=== PATIENT | female | born 1945 | race Caucasian/White ===

== ENCOUNTER 2016-05-31 07:44 | Day surgery (SDC) | payer MEDICARE ==
[~2016-05-31] VITALS: Ht 162.6 cm; Wt 86.0 kg
[2016-05-31] VITALS (14 sets, daily range): BP systolic 95–125; BP diastolic 6–76; PULSE 46–61; RESP 9–20; O2SAT 87–98
[~2016-05-31 07:44] MED LIST: ALBU18HF INH; CHOL500011 PO; CLOP75TA3 PO; COMPLEX PO; CeFAZolin 2 Gm/50 mL D5W IV Premix IV ONE; DIAZ10TA PO; DOCU250C2 PO; HYDR-3740 PO; LABE100T4 PO; LEVO100T6 PO; LISI2.5T PO; Lactated Ringer's 1,000 ML IV SCH; MULT-1018 PO; OMEG-38 PO; PANT40TA2 PO; POLY17PO6 PO; PSYL660P17 PO; SENN-133 PO; SPIR25TA3 PO; UBID1CAP52 PO; [UNRECOGNIZED DRUG - OTHER] PO
[2016-05-31] MEDS ORDERED: Ondansetron 2 mg/mL 2 mL Inj ONE (07:45)
[2016-05-31] MEDS ORDERED: Atropine 0.4 mg/mL 5 mL Inj ONE (07:45)
[2016-05-31] MEDS ORDERED: EPHEDrine/NS 5 mg/mL 5 mL Syringe ONE (07:45)
[2016-05-31] MEDS ORDERED: Dexamethasone 4 mg/mL Inj ONE (07:45)
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
[2016-05-31] MEDS ORDERED: Ketamine 10 mg/mL 20 mL Inj ONE (09:00)
[2016-05-31] MEDS ORDERED: Remifentanil 1 mg/3 mL Inj ONE (09:00)
[2016-05-31] MEDS ORDERED: Lactated Ringer's 1,000 ML IV ONE (09:01)
[2016-05-31] MEDS ORDERED: Bupivacaine-MPF 0.5% 30 mL Inj INFILTRATE ONE (10:28)
[2016-05-31] MEDS ORDERED: Ondansetron 2 mg/mL 2 mL Inj IVPUSH PRN (11:15)
[2016-05-31] MEDS ORDERED: Lactated Ringer's 500 ML IV PRN (11:15)
[2016-05-31] MEDS ORDERED: Lactated Ringer's 1,000 ML IV SCH (11:15)
[2016-05-31] MEDS ORDERED: Dexamethasone 4 mg/mL Inj IVPUSH PRN (11:15)
[2016-05-31] MEDS ORDERED: EPHEDrine Sulfate 50 mg/mL Inj IVPUSH PRN (11:15)
[2016-05-31] MEDS ORDERED: MetoCLOpramide 5 mg/mL 2 mL Inj IVPUSH PRN (11:15)
[2016-05-31] MEDS ORDERED: Phenylephrine 10,000 mCg/mL Inj IVPUSH PRN (11:15)
[2016-05-31] MEDS ORDERED: HYDROcodone-APAP 10-325 mg PO ONE (11:35)
--- NOTE | 2016-05-31 11:46 | PCM.ORTHOB ---
Immediate Operative Note Date of Service: May 31, 2016 Pre Operative Diagnosis Right distal radius fracture Post Operative Diagnosis Same Procedure Right distal radius fracture open reduction and internal fixation Surgeon Surgeon: Te Escalera MD Assistants: Poncho Gil PA-C Findings Right distal radius, displaced, comminuted, over 3 part intra-articular distal radius fracture satisfactorily reduced and stabilized considering pre-existing distal radial fracture deformity from previous fracture with a Synthes 3-hole proximal and 6 hole distal small narrow 2.4 mm variable angle locking delta plate with 62.4 mm distal locking screws and 3 proximal 2.7 mm bicortical screws. Intraoperative fluoroscopic viewing with mini C-arm confirmed satisfactory reduction without intra-articular or dorsal cortical violation from our placed hardware. Grafts, Implants: Implants-See Implant Record Complications There were no periprocedural complications identified. Condition Stable Anesthetic Administered: GA Drains: None Catheters: None Output, Estimated Blood Loss: 5 Blood Admin during surgery: No Surgical Cast or Splint: None, Short Arm Splint Additional Information Tourniquet time 92 minutes Surgical Specimen Removed: No Surgical Specimen sent to Path: No Post Operative Plan Patient will discharge home when surgical date for protocol is met. The patient will avoid strenuous and weightbearing activities to her right upper extremity for the next 6 weeks. Patient will return to the orthopedic office on or after postop day 12 for surgical splint removal, suture removal, repeat x- rays of her right wrist and placement in a removable volar wrist cock-up splint. Wrist and hand range of motion exercises will be initiated at that point. Te Escalera MD May 31, 2016 11:46
[2016-05-31] MEDS: fentaNYL-PF 50 mCg/mL 2 mL Inj IVPUSH PRN ×3 (11:49→13:03)
[2016-05-31] MEDS: HYDROmorphone 1 mg/mL Inj IVPUSH PRN ×3 (11:55→12:30)
--- NOTE | 2016-05-31 11:55 | PCM.ORTHOP ---
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 Unfortunately, the patient tripped and fell outside her home 05/23/2016 and refractured her right distal radius. Preoperative x-rays and physical exam reveal a displaced, intra- articular, unstable right distal radius fracture with mild pre-existing fracture malunion deformity. The patient presents today for right distal radius open reduction internal fixation of her displaced right distal radius intra-articular fracture. The skilled assistance of a physician's occupational therapy assistant, Poncho Gil PA-C, was necessary for the successful completion of this case. The PA was essential for the proper positioning, manipulation of instruments, proper exposure, manipulation of tissues and wound closure. Findings Right distal radius, displaced, comminuted, over 3 part intra-articular distal radius fracture satisfactorily reduced and stabilized considering pre-existing distal radial fracture deformity from previous fracture with a Synthes 3-hole proximal and 6 hole distal small narrow 2.4 mm variable angle locking delta plate with 62.4 mm distal locking screws and 3 proximal 2.7 mm bicortical screws. Intraoperative fluoroscopic viewing with mini C-arm confirmed satisfactory reduction without intra-articular or dorsal cortical violation from our placed hardware. Details of Procedure Patient was brought to the OR and given a general anesthetic. She is placed in supine position with the right upper extremity abducted onto a hand table. Tourniquet was placed high about the right arm. Right upper extremity sheet to trauma scrub and then was prepped and draped in usual sterile fashion. Limb was elevated exsanguinated and tourniquet inflated to 200 mmHg. A longitudinal incision was placed over the volar radial forearm overlying the flexor carpi radialis tendon and curved gently proximal to the volar radial wrist flexor crease. We deepened our incision through subcutaneous tissues and divided the fascia over the FCR tendon. The radial nerve and artery were gently retracted radially and the FCR, flexor tendons and median nerve were retracted gently ulnar. We elevated the flexor pollicis longus and pronator quadratus in a subperiosteal fashion off the distal radial border of the radius and at the radial styloid and extended our subperiosteal dissection transversely at the watershed line to expose the volar surface of the distal radius from diaphyseal metaphyseal flare to just proximal to the radiocarpal joint. We evacuated fracture hematoma, soft tissue subperiosteally and performed an open reduction of the over 3 part intra-articular distal radius fracture. Mini C-arm fluoroscopic image intensification confirmed satisfactory reduction and alignment. We then applied to the volar surface of the distal radius, transversing the comminuted metaphyseal fracture site, a Synthes 2.4 mm variable angle 2 column locking volar narrow distal radial plate. The plate was secured distally with 6 x 2.4 mm locking screws and proximally with 3 x 2.7 mm bicortical screws. Intraoperative fluoroscopic views confirmed satisfactory reduction and fixation without intra-articular violation or dorsal cortical penetration from our placed hardware. The wound was thoroughly irrigated and closed. The pronator quadratus and flexor pollicis longus was closed over the volar plate with a running 3-0 Vicryl suture. The subcutaneous tissues were closed with interrupted 3-0 Vicryl. A 3-0 Prolene subcuticular stitch was used to close the skin. 20 mL of 0.5% Marcaine was instilled into the wound at the end of the case. The wound was dressed with Xeroform and fluff gauze dressings. The patient was placed into a well-padded volar short arm splint. Tourniquet was deflated and the patient was taken back to PACU in stable and satisfactory condition. There were no complications. The patient tolerated the procedure well. Grafts, Implants: Implants-See Implant Record Complications There were no periprocedural complications identified. Condition Stable Anesthetic Administered: GA Drains: None Catheters: None Output, Estimated Blood Loss: 5 Blood Admin during surgery: No Surgical Cast or Splint: None, Short Arm Splint Addtional Information Tourniquet time 92 minutes Surgical Specimen Removed: No Specimen sent to Pathology: No Post Operative Plan Patient will discharge home when surgical date for protocol is met. The patient will avoid strenuous and weightbearing activities to her right upper extremity for the next 6 weeks. Patient will return to the orthopedic office on or after postop day 12 for surgical splint removal, suture removal, repeat x- rays of her right wrist and placement in a removable volar wrist cock-up splint. Wrist and hand range of motion exercises will be initiated at that point. copies to: Rubio Rod MD; Te Escalera MD, Michael G.E MD May 31, 2016 11:55
--- NOTE | 2016-05-31 12:13 | DRSVH ---
PROCEDURE: X-RAY RIGHT WRIST, TWO VIEWS ([id number]) INDICATIONS: post operation TECHNIQUE: 2 views of the wrist were acquired. COMPARISON: [facility], CR, XR WRIST 3VW RT, 05/23/2016, 13:32. FINDINGS: Bones: Interval ORIF of distal radial fracture. There is grossly good anatomic alignment. Hardware is intact. Scaphoid view: Not obtained. Soft tissues: No suspicious soft tissue calcifications. IMPRESSION: Interval ORIF of distal radial fracture as above. Dictated by: Nori Macias M.D. on 05/31/2016 at 12:12 Approved by: Nori Macias M.D. on 05/31/2016 at 12:12
--- NOTE | 2016-05-31 12:52 | PCM.ANEP1 ---
Post Anesthesia Phase 1 PACU Phase 1 Assessment Date of Service: May 31, 2016 Vital Signs Vital Signs Date Time Temp Pulse Resp B/P Pulse Ox O2 Delivery O2 Flow Rate FiO2 05/31/16 12:40 56 12 108/68 95 Nasal Cannula 4 05/31/16 12:30 56 15 123/74 94 Nasal Cannula 4 05/31/16 12:20 35.8 58 12 114/66 95 Nasal Cannula 4 05/31/16 12:14 56 12 107/67 97 Simple Mask 10 05/31/16 12:01 46 13 113/64 92 Nasal Cannula 3 05/31/16 11:50 57 18 112/64 98 Simple Mask 10 05/31/16 11:45 50 12 108/58 98 Simple Mask 10 05/31/16 11:40 53 9 98/56 98 Simple Mask 10 05/31/16 11:35 36.1 58 11 95/51 98 Simple Mask 10 05/31/16 08:36 36.5 59 20 125/75 95 Room Air Anesthetic Administered: GA Level of Alertness: Awake, talking BERGER's with Equal Strength: Yes Pain: No Nausea or Vomiting: No Oxygen Delivery: Simple Mask Lungs: Clear to Auscultation Dermatome Level: Full Sensation Carlos Hauser MD May 31, 2016 12:52
--- NOTE | 2016-05-31 12:53 | PCM.ANEP2 ---
Post Anesthesia Evaluation ASA/CMS Post Anesthesia VS in Patient's Normal Range?: Yes Resp Stable; Airway Patent?: Yes CV Function & Hydration Stable: Yes Mental Status Recovered?: Yes Pain control Satisfactory?: Yes N/V Control Satisfactory?: Yes Carlos Hauser MD May 31, 2016 12:53
== END 2016-05-31 23:59 | disposition home or self-care (01) ==
LOC: SAS 07:44
PROVIDERS: ATTEND Orthopaedic Surgery
DX: S52.571A Other intraarticular fracture of lower end of right radius, initial encounter for closed fracture (principal); I69.952 Hemiplegia and hemiparesis following unspecified cerebrovascular disease affecting left dominant side; I25.10 Atherosclerotic heart disease of native coronary artery without angina pectoris; W18.30XA Fall on same level, unspecified, initial encounter; Y92.019 Unspecified place in single-family (private) house as the place of occurrence of the external cause; Y99.9 Unspecified external cause status; Y93.9 Activity, unspecified; F41.9 Anxiety disorder, unspecified; F32.9 Major depressive disorder, single episode, unspecified; K21.9 Gastro-esophageal reflux disease without esophagitis; I10 Essential (primary) hypertension; Z85.850 Personal history of malignant neoplasm of thyroid; Z79.02 Long term (current) use of antithrombotics/antiplatelets; Z87.440 Personal history of urinary (tract) infections; Z87.81 Personal history of (healed) traumatic fracture; Z91.81 History of falling
CPT/HCPCS: 25609; 73100; C1713; J0461; J0690; J1100; J1170; J2405; J7120

== ENCOUNTER 2016-09-06 16:13 | Inpatient (IN) | payer MEDICARE ==
[~2016-09-06] VITALS: Ht 162.6 cm; Wt 85.1 kg
[~2016-09-06 16:13] MED LIST changes: -CeFAZolin 2 Gm/50 mL D5W IV Premix IV ONE; -Lactated Ringer's 1,000 ML IV SCH
[2016-09-06 16:37] VITALS: BP 161/83; PULSE 64; RESP 15; O2SAT 97
[2016-09-06 17:06] LABS: BASOPHILS % (AUTO) 0.5 % (0-3); EOSINOPHILS % (AUTO) 2.1 % (0-5); MONOCYTES % (AUTO) 5.3 % (4-12); Mean Corpuscular Hemoglobin 33.5 pg (27.0-35.0); Mean Corpuscular Volume 96.8 fL (81-100); NEUTROPHILS % (AUTO) 53.3 % (40-74); Platelet Count 240 bil/L (150-400)
--- NOTE | 2016-09-06 17:18 | ED.REPORT ---
HPI-Stroke / CVA Sep 06, 2016 ED Provider: Devyn Santiago MD 70 y/o female with a hx of multiple CVAs, CAD, HTN, self-reported 4.7cm ascending aortic aneurysm and thyroid cancer (s/p resection) reports to the ED complaining of blurred vision, onset approximately 15:15 today. She also complains of elevated blood pressure about 170 systolic and chest pressure. Her PCP recommended she come to the ED due to her elevated BP and CP. She also complains of weakness in her left lower extremity upon arriving at ED at 17:15. She denies dysphagia, dysarthria.. Nursing Notes Stated Complaint: HIGH BLOOD PRESSURE, BLURRED VISION,CHEST PRESSURE Chief Complaint: Chest Pain Nursing Notes Reviewed: Yes Allergies: Coded Allergies: Contrast Media (Verified Allergy, Severe, Anaphylaxis, 05/29/16) atenolol (Verified Allergy, Severe, Anaphylaxis, 05/29/16) "swelling, resp arrest" chlorpromazine (Verified Allergy, Severe, RESP ARREST, 05/29/16) clonidine (Verified Allergy, Severe, HIVES, 05/29/16) droperidol (Verified Allergy, Severe, SUICIDAL IDEATION, 05/29/16) ezetimibe (Verified Allergy, Severe, RASH, 05/29/16) iodine (Verified Allergy, Severe, respiratory failure, 05/29/16) monosodium glutamate (Verified Allergy, Severe, Anaphylaxis, 05/29/16) Resp arrest prochlorperazine (Verified Allergy, Severe, ACUTE DYSTONIC RXN/resp arrest , 05/29/16) shellfish derived (Verified Allergy, Severe, Anaphylaxis, 05/29/16) triamcinolone (Verified Allergy, Severe, 05/29/16) Facial swelling trifluoperazine (Verified Allergy, Severe, HALLUCINATIONS,RESP ARREST, ) aspirin (Verified Allergy, Intermediate, MIGRAINE HEADACHE, 05/29/16) atorvastatin (Verified Allergy, Intermediate, Hives, 05/29/16) simvastatin (Verified Allergy, Intermediate, Hives, 05/29/16) dipyridamole (Verified Allergy, Mild, headache, nausea, 05/29/16) Adhesives (Verified Allergy, Unknown, 05/29/16) pentazocine (Verified Allergy, Unknown, Hallucinations, 05/29/16) fluticasone (Verified Adverse Reaction, Severe, Hives, 05/29/16) Nose swelling methadone (Verified Adverse Reaction, Severe, HIVES, 05/29/16) morphine (Verified Adverse Reaction, Severe, Rash,Itching,, 05/29/16) oxycodone (Verified Adverse Reaction, Severe, HIVES,SWELLING, 05/29/16) pravastatin (Verified Adverse Reaction, Severe, Hives, 05/29/16) Muscle pain codeine (Verified Adverse Reaction, Intermediate, DIZZY, UNSTEADY, 05/29/16 ) "depends on product" Uncoded Allergies: PROPIONATE (Allergy, Severe, FACIAL SWELLING, 05/29/16) Scheduled ([super b-50 complex]) 1 TABLET PO DAILY (Reported) Cholecalciferol (Vitamin D3) (Vitamin D3) 5,000 Unit Tablet 5,000 UNIT PO DAILY (Reported) Clopidogrel Bisulfate (Plavix) 75 Mg Tablet 75 MG PO DAILY (Reported) Docusate Sodium (Docusate Sodium) 250 Mg Capsule 250 MG PO BID (Reported) Labetalol (Labetalol) 100 Mg Tablet 100 MG PO QID (Reported) Take 1/2 to 1 tablet four times daily. Levothyroxine (Levothyroxine) 100 Mcg Tablet 100 MCG PO DAILY (Reported) Lisinopril (Lisinopril) 2.5 Mg Tablet 1.25 MG PO BID (Reported) Multivitamin (Multi Vitamin Daily) 1 Each Tablet 1 EACH PO HS (Reported) Cyrus-3/Dha/Epa/Fish Oil (Fish Oil 1,000 mg Softgel) 1 Each Capsule 1 EACH PO TID (Reported) Pantoprazole DR (Protonix) 40 Mg Tablet.dr 40 MG PO BID (Reported) Polyethylene Glycol 3350 (Miralax) 17 Gm Powd.pack 17 GM PO DAILY (Reported) Psyllium Husk (Metamucil) 3.4 Gram/5.4 Gram Powder 0 PO HS (Reported) Spironolactone (Spironolactone) 25 Mg Tablet 1-2 TABLET PO DAILY (Reported) Ubidecarenone/Vit E Acetate (Co Q-10 100 mg Softgel) 1 Each Capsule 2 EACH PO HS (Reported) Scheduled PRN Albuterol Sulfate (Ventolin HFA Inhaler) 200 Puff/18 Gm Inhaler 2 PUFF INH Q4 PRN PRN For Wheezing (Reported) Diazepam (Valium) 10 Mg Tablet 10 MG PO Q4-6H PRN PRN For Anxiety Hydrocodone-Acetaminophen 10-325 mg (Hydrocodone-Acetaminophen 10-325 mg) 1 Each Tablet 1-2 TABLET PO Q4H PRN PRN For Pain Sennosides (Senna) 8.6 Mg Tablet 8.6 MG PO DAILY PRN PRN PRN For Constipation ( Reported) General Time Seen by Provider: 17:15 Chief Complaint Other (Blurred vision) Eye right, Eye left Hx Obtained From: Patient Arrived By: Walk-in Time last known well 15:15 Sudden in Onset?: Yes Symptom Duration: Since onset Progression Since Onset: Constant Location: : Chest Quality: Pressure Severity: Current: Mild Severity: Maximum: Mild Recent Healthcare: Recent doctor visit, Previous diagnosis Similar Sx Previous: Yes Risk Factors )( TPA Administration/Criteria Stroke Thrombolytic Therapy : TPA Considered: Yes Neurologist Contacted: Yes TPA Administered Intravenously: No, not indicated NIH Stroke Scale Level of Consciousness: Alert and responsive (0) Ask Month & Age: Both questions right (0) Open/Close Eyes/Hand Fan Balancer: Performs both tasks (0) Horizontal EO Movements: None (0) Visual Sumner: No visual loss (0) Facial Palsy: Normal symmetry (0) Right Arm Motor Drift (10s): No drift 10 sec (0) Left Arm Motor Drift (10s): No drift 10 sec (0) Right Leg Motor Drift (5s): No drift 5 sec (0) Left Leg Motor Drift (5s): Some effort v gravity (2) Limb Ataxia FNF/Heel-Vo: Ataxia in 1 limb (1) (LUE) Sensation (Arms/Legs/Face): No sensory loss (0) Language Aphasia: No aphasia, normal (0) Dysarthria: No dysarthria, normal (0) Extinction/Inattention: No exctinct/inattent (0) NIHSS Score: 3 Time NIHSS Performed: 17:24 Date NIHSS Performed: Sep 06, 2016 Past Medical History Past Medical History Notes: Admit for TIA 09/11/15, declined Plavix at that time Past Medical History 1. Coronary artery disease. 2. Gastroesophageal reflux disease. 3. Hypertension. 4. History of multiple strokes and TIA. 5. Thoracic ascending aortic aneurysm reportedly 4.7 cm 6. Valvular heart disease. 7. History of thyroid cancer status post total thyroidectomy. Past Surgical History Thoracic spinal fusions Right wrist repair Thyroidectomy Family History noncontributory Smoking History Never Smoker Social History Alcohol Use: Denies alcohol use Drug Use: Denies drug use Other Social History: Good social support, , Local resident Ambulatory Status Independent Review of Systems Eyes: Reports: Blurred bilateral Cardiovascular: Reports: Chest pain GI: Denies: Dysphagia Neurologic: Reports: Focal weakness (LLE), Vision change, Denies: Unable to speak Complete sys rev & neg: except as marked. Physical Exam Initial Vital Signs Vital Signs (First) Date Time Temp Pulse Resp B/P Pulse Ox O2 Delivery O2 Flow Rate FiO2 09/06/16 16:37 36.5 64 15 161/83 97 Room Air Initial VS: Reviewed ENT: Mucous membranes moist, Conjunctiva normal, No scleral icterus Abdomen / GI: Soft, Non-tender, No guarding, No rebound, No distention Skin: Warm, Dry, No cyanosis General/Constitutional: Awake, Alert, Cooperative Odd affect Head / Eyes: Atraumatic, Normocephalic Subjective blurry vision. Neck: Atraumatic, Supple, Full range of motion Respiratory / Chest: Atraumatic, Breath sounds NL, Breath sounds = bilat, No respiratory distress, No rales, No rhonchi, No wheezing, No retractions Cardiovascular: Heart rate NL, Regular rhythm, Heart sounds NL, No gallop, No murmurs Neurologic: Oriented X3, Speech NL, CN II - XII intact Left lower extremity weakness. Left upper extremity dysmetria. Subjective decreased sensation of LLE to pinprick See NIH stroke scale. Upper Extremity / MS: Atraumatic, Full range of motion, Vascular intact Lower Extremity / Pelvis / MS: Atraumatic, Vascular intact Interpretation & Diagnostics Lab Results Interpretation Result Diagram: 09/06/16 1655 09/06/16 1655 Test 09/06/16 16:55 09/06/16 16:58 White Blood Count 6.1th/mm3 (3.8-10.1) Red Blood Count 4.42mil/mm3 (3.90-5.20) Hemoglobin 14.8g/dL (12.0-15.6) Hematocrit 42.8% (35.0-46.0) Mean Corpuscular Volume 96.8fL (81-100) Mean Corpuscular Hemoglobin 33.5pg (27.0-35.0) Mean Corpuscular Hemoglobin Concent 34.6% (32.0-37.0) Red Cell Distribution Width 11.9% (12.3-15.4) Platelet Count 240bil/L (150-400) Neutrophils (%) (Auto) 53.3% (40-74) Lymphocytes (%) (Auto) 38.6% (14-46) Monocytes (%) (Auto) 5.3% (4-12) Eosinophils (%) (Auto) 2.1% (0-5) Basophils (%) (Auto) 0.5% (0-3) Prothrombin Time 10.4sec (8.1-12.5) Prothromb Time International Ratio 0.97ratio Activated Partial Thromboplast Time 25.9sec (22.8-33.0) Sodium Level 142mEq/L (134-144) Potassium Level 3.8mEq/L (3.5-5.2) Chloride Level 103mEq/L (97-108) Carbon Dioxide Level 23mmol/L (18-29) Blood Urea Nitrogen 20mg/dL (8-27) Creatinine 0.69mg/dL (0.57-1.00) Estimat Glomerular Filtration Rate 120mL/min (>59) Glucose Level 93mg/dL (60-99) Calcium Level 10.5mg/dL (8.5-10.1) Magnesium Level 1.8mg/dL (1.6-2.6) Total Bilirubin 0.4mg/dL (0.0-1.2) Aspartate Amino Transf (AST/SGOT) 24U/L (0-50) Alanine Aminotransferase (ALT/SGPT) 11U/L (0-32) Alkaline Phosphatase 76U/L (25-165) Troponin T < 0.010ug/L (0.0-0.011) Total Protein 7.4g/dL (6.4-8.4) Albumin 4.6g/dL (3.4-5.0) Hold Zaidi Top Tube Received (Received) ECG Interpretation ECG Interpretation: Atrial Fibrillation. Rate 61. Left ventricular hypertrophy. Anterior Q waves. Poor quality. Time: 17:40 Interpreted by: ED physician X-Ray Chest Interpretation Chest Xray Interpretation: IMPRESSION: No acute cardiopulmonary disease. Dictated by: Vick Cantu M.D. on 09/06/2016 at 17:15 Approved by: Vick Cantu M.D. on 09/06/2016 at 17:15 View: Portable, 1 view Interpretation / Wet Read by: Interpret - Radiologist CT Head Interpretation IMPRESSION: No acute intracranial abnormalities. Nonacute right temporal lobe and left thalamic lobe ischemic insults as before. Findings were discussed with nurse Uriarte at 1730 hrs on September 06, 2016. This study fulfills neurological imaging criteria for inclusion or exclusion of acute stroke therapies based on available published neurological imaging guidelines. Dictated by: Vick Cantu M.D. on 09/06/2016 at 17:24 Approved by: Vick Cantu M.D. on 09/06/2016 at 17:29 Study: Head CT no contrast Interpretation / Wet Read by: Interpret - Radiologist Re-Eval/Medical Decision Med Decision/Clinical Course 70-year-old female history of hypertension, thoracic aneurysm, CVA's on plavix presenting with elevated blood pressures and chest pressure earlier today. She also complained of blurry vision 2 hours prior to arrival and when I evaluated her she reported that her left leg became weak when she arrived. She was ambulatory on the way in and reported she was unable to lift her left leg she was here. Code stroke was called immediately. NIH stroke scale 3 for left upper extremity dysmetria and left lower extremity weakness. She reported subjective blurry vision but was able to count fingers and read words. CT head no hemorrhage. Stroke neurologist was called immediately who reviewed the CT scan and thought there may be a developing left occipital infarct and recommended no TPA as a result. She recommended admission for MRI and mild lowering of blood pressure. Troponins negative. No acute changes on EKG. Will trend on admission. Admitted to hospitalist. Source of Hx: Old records Re-Evaluation/Progress : Time of Eval: 18:20 Re-Evaluation/Progress Note: Pt rechecked. Pt informed of need for admission. Pt understands and agrees with plan for admission. All questions addressed. Consultation #1: Consulted With: Neurology Call Returned at: 17:32 Note: Discussed case with [place] Stroke Neurologist Leticia Olivas. She recommends no TPA. She believes she sees an occipital lobe stroke on CT. Consultation #2: Referral / Consult Name: Jorge Caban MD Consulted With: Hospitalist Call Returned at: 18:08 Furniture Restorer: Will see patient, Agrees with eval, Agrees with plan, Accepts admit Counseled Regarding: Diagnosis, Lab results, Need for admission Patient Discharge & Departure Impression: Primary Impression: CVA (cerebral vascular accident) CVA mechanism: unspecified Qualified Code: I63.9 - Cerebral infarction, unspecified Additional Impressions: Left leg weakness Chest pain Disposition: ADMITTED TO HOSPITAL Discharge Condition All VS Reviewed: Yes Condition: Stable Referrals: Rubio Rod MD (PCP) Crit Care Except Billable Proc Time Spent: 75-104 minutes (90) Services Performed: Patient management by me, Time spent at bedside, Reviewing test results, Reviewing imaging, Discussing patient care, Documentation in record Critical Care Notes: See MDM Scribe Attestation Portions of this note were transcribed by Alexandria Hassan and Juan Martinez. I, , personally performed the history, physical exam and medical decision-making;I reviewed and confirmed the accuracy of the information in the transcribed note. Signed by Alxeandria Hassan and Juan Martinez, Scribe. 09/06/16 1815. copies to: Rubio Rod MD, Ben M MD Sep 06, 2016 17:18 Alexandria Hassan Sep 06, 2016 17:29 JUAN MARTINEZ Sep 06, 2016 18:23
--- NOTE | 2016-09-06 17:22 | DRSVH ---
PROCEDURE: X-RAY CHEST ONE VIEW, PORTABLE ([id number]) INDICATIONS: 70 year-old female with chest pain. TECHNIQUE: One view of the chest was acquired. COMPARISON: [facility], CR, XR CHEST 1VW (PORTABLE), 03/04/2015, 20:55. [facility], CR, CHEST 1VW (PORTABLE), 09/30/2014, 10:23. [facility], CR, CHEST 1VW (PORTABLE ), 04/22/2014, 14:40. FINDINGS: Surgical changes and devices: Patient is status postcholecystectomy and cervical spine fixation. Lungs and pleura: No pleural effusions or pneumothorax. Lungs are clear. Mediastinum: Mediastinal contours appear normal. Heart size is normal. Bones and chest wall: No suspicious bony lesions. Overlying soft tissues appear unremarkable. IMPRESSION: No acute cardiopulmonary disease. Dictated by: Vick Cantu M.D. on 09/06/2016 at 17:15 Approved by: Vick Cantu M.D. on 09/06/2016 at 17:15
[2016-09-06 17:29] LABS: INR 0.97 ratio
[2016-09-06 17:33] LABS: TROPONIN T < 0.010 ug/L (0.0-0.011)
--- NOTE | 2016-09-06 17:36 | DRSVH ---
PROCEDURE: CT BRAIN (TPA) ([id number]) INDICATIONS: 70 year-old female with left-sided weakness and blurred vision. TECHNIQUE: Noncontrast 4.5 mm thick angled axial sections acquired from the foramen magnum to the vertex, with c oronal reformats. COMPARISON: [facility], CT, CT BRAIN WO CON, 05/23/2016, 14:50. [facility], MR, MR BRAIN WO CON, 10/07/2015, 18:46. [facility], CT, CT BRAIN WO CON, 10/07/2015, 17:25 . [facility], CT, CT BRAIN WO CON, 09/11/2015, 1:57. FINDINGS: Image quality: Excellent. CSF spaces: Basal cisterns are patent. No extra-axial fluid collections. Ventricles are normal in size and shape. Brain: No midline shift. No intracranial masses or hemorrhage. Nonacute ischemic insult in the rig ht temporal lobe is unchanged since 2016, as well as the left thalamic lobe. Tejeda-white matter interf dayanara is otherwise normal. Skull and face: Calvarium and visualized facial bones are intact, without suspicious lesions. Sinuses: Visualized sinuses and mastoids are clear. IMPRESSION: No acute intracranial abnormalities. Nonacute right temporal lobe and left thalamic lobe ischemic insults as before. Findings were discussed with nurse Uriarte at 1730 hrs on September 06, 2016. This study fulfills neurological imaging criteria for inclusion or exclusion of acute stroke therapie s based on available published neurological imaging guidelines. Dictated by: Vick Cantu M.D. on 09/06/2016 at 17:24 Approved by: Vick Cantu M.D. on 09/06/2016 at 17:29
[2016-09-06] MEDS ORDERED: Labetalol 5 mg/mL 4 mL Inj ONE (17:39)
[2016-09-06 17:42] LABS: Magnesium 1.8 mg/dL (1.6-2.6)
[2016-09-06] MEDS ORDERED: Labetalol 5 mg/mL 4 mL Inj IVPUSH ONE (17:45)
[2016-09-06] MEDS ORDERED: Alum-Mag Hydrox-Simeth 30 mL Suspension PO PRN ×2 (18:15→18:25)
[2016-09-06] MEDS ORDERED: Ondansetron 2 mg/mL 2 mL Inj IVPUSH PRN ×2 (18:15→18:25)
[2016-09-06] MEDS: Sodium Chloride LOK Flush 10 mL Syringe IVFLUSH SCH (18:15)
[2016-09-06] MEDS ORDERED: FISH1CAP15 PO (18:30)
[2016-09-06] MEDS ORDERED: LEVO112T4 PO (18:30)
[2016-09-06] MEDS ORDERED: LISI-571 PO (18:30)
[2016-09-06 18:37] VITALS: BP 182/78; PULSE 55; RESP 18; O2SAT 96
[2016-09-06] MEDS ORDERED: Polyethylene Glycol (PEG) 17 Gm Powder PO PRN (18:40)
--- NOTE | 2016-09-06 18:40 | NUR ---
MPC To arrive to unit via gurney, unable to assist with sliding from gurney to bed. Patient reporting neck and back pain, "I am hoping for Dilaudid, I haven't had my pain meds all day. Hospitalist contacted for home pain meds. Patient tucked in, report to oncoming nurse.
--- NOTE | 2016-09-06 19:11 | NUR ---
spiritual care: stroke response brief visit as pt rec care in ER. Pt known to insole buffer, greeted me and requested follow up in unit
[2016-09-06 19:36] VITALS: BP 182/103; PULSE 62; RESP 18; O2SAT 98
[2016-09-06] MEDS ORDERED: Albuterol 2.5 mg/3 mL Inhalation Solution NEB PRN (20:00)
--- NOTE | 2016-09-06 20:54 | NUR ---
Swallow Pt's lips/mouth is asymetrical due to prior stroke which is her baseline. MD aware that pt does not pass the RN swallow screen. MD requests pt to have a heart healthy diet tonight. Meds to be crushed in applesauce. Care ongoing
[2016-09-06] MEDS ORDERED: VIT E ACETATE PO SCH (21:00)
[2016-09-06] MEDS: Omega-3 Fatty Acids 1,000 mg Capsule PO SCH (21:00)
[2016-09-06] MEDS ORDERED: UBIDECARENONE PO SCH (21:00)
[2016-09-06] MEDS: HYDROcodone-APAP 10-325 mg PO PRN (21:42)
[2016-09-06] MEDS: Vitamin B Complex/Vit C Tablet PO SCH (21:43)
--- NOTE | 2016-09-06 22:10 | PCM.HPMED ---
Subjective Date of Service Sep 06, 2016 Primary Provider: Admitting Physician: Jorge Caban MD Primary Care Physician: Rubio Rod MD Attending Physician: Jorge Caban MD Admit Status: From the Emergency Department, Full Admit, Admit to Green Team Chief Complaint: High blood pressure, chest pain and left-sided weakness. History of Present Illness: Patient is a 70-year-old obese white female with history of multiple CVAs, TIAs , coronary artery disease and hypertension with a history of a 4.7 cm ascending thoracic aortic aneurysm who had a slightly elevated blood pressure this morning and she called Dr. Sheets's(sp?) office to his nurse Javy who recommended that she call Dr. Rod office as Dr. Sheets's(sp?) Was out of town. The patient called Dr. Rod's office and told the triage nurse that her blood pressure was 179/109 and that she did use the maximum doses of labetalol and lisinopril that she was allowed to use. The triage nurse told her to go to the emergency room. On coming to the emergency room patient dated that she had blurry vision and it felt like an elephant was sitting on her chest and she was cold and clammy and then she developed left-sided weakness of her left upper extremity and left lower extremity. Patient was evaluated by Dr. Devyn Santiago who also noted that she had left upper extremity weakness and even greater left lower extremity weakness. A code stroke was called immediately. Her NIH stroke score was 3 for left upper extremity dysmetria and left lower extremity weakness. She reported subjective blurry vision but was able to count fingers and read words. A CT scan of the head showed no hemorrhage. Dr. Olivas from [facility] a stroke neurologist was called immediately who reviewed the CT scan and thought there may be a developing left occipital infarct and recommended that the patient not receive TPA. She recommended admission for MRI and mild lowering of blood pressure. The patient' s troponins were negative. No acute changes on EKG and patient was admitted to the hospitalist service. Review of Systems: General: Patient has no general complaints at this time. She is beginning to feel better. HEENT: Patient has a slight headache, patient has blurry vision at the time of admission to the emergency room. Patient has no problems with her nose or throat. 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 However, she states that she has a left sided facial droop, which she states is new. Patient has no known dental problems. Patient has no pharyngitis or history of thrush. Neck: Patient has some chronic pain in her neck and she has had fusion of C3 through C7. No significant degenerative disc disease in her neck thoracic spine and lumbar spine. Patient has no lymphadenopathy. Patient has no other problems with their neck. Pulmonary: Patient has no shortness of breath, no cough, no expectoration of sputum. Patient has no pleurisy. Patient has no chest pain. Patient has no history of asthma or COPD. Cardiovascular: Patient has no chest pain. Patient has a history of a heart murmur. Patient has no palpitations. Patient has no history of myocardial infarction. Patient has a history of coronary artery disease. Gastrointestinal: Patient has no history of hepatitis A, B or C. Patient has no history of actual peptic ulcer disease. However, she states that she developed "pockets" while on aspirin that were concerning so her primary care doctor took her off aspirin. Patient has no history of gastroesophageal reflux disease. Patient has no history of nausea, vomiting, or diarrhea. Patient has no history of hematemesis, hematochezia, or melena. Patient has no history of colitis. Renal: Patient has no history of kidney disease. No history of kidney stones. Genitourinary: Patient has no history of dysuria, frequency, or incontinence. Patient has no previous history of genitourinary problems. Musculoskeletal: Patient has no history of muscular skeletal problems. Neurologic: Patient has a history of multiple strokes, and TIAs. She thinks she may have had a seizure in front of her strokes. However, she is not sure. Psychiatric: Patient has anxiety however denies any other psychiatric illnesses. The remainder of the entire review of systems was reviewed with patient and is as mentioned above otherwise negative. Allergies Coded Allergies: Contrast Media (Verified Allergy, Severe, Anaphylaxis, 09/06/16) atenolol (Verified Allergy, Severe, Anaphylaxis, 09/06/16) "swelling, resp arrest" chlorpromazine (Verified Allergy, Severe, RESP ARREST, 09/06/16) clonidine (Verified Allergy, Severe, HIVES, 09/06/16) droperidol (Verified Allergy, Severe, SUICIDAL IDEATION, 09/06/16) ezetimibe (Verified Allergy, Severe, RASH, 09/06/16) iodine (Verified Allergy, Severe, respiratory failure, 09/06/16) monosodium glutamate (Verified Allergy, Severe, Anaphylaxis, 09/06/16) Resp arrest prochlorperazine (Verified Allergy, Severe, ACUTE DYSTONIC RXN/resp arrest , 09/06/16) shellfish derived (Verified Allergy, Severe, Anaphylaxis, 09/06/16) triamcinolone (Verified Allergy, Severe, 09/06/16) Facial swelling trifluoperazine (Verified Allergy, Severe, HALLUCINATIONS,RESP ARREST, ) aspirin (Verified Allergy, Intermediate, MIGRAINE HEADACHE, 09/06/16) atorvastatin (Verified Allergy, Intermediate, Hives, 09/06/16) simvastatin (Verified Allergy, Intermediate, Hives, 09/06/16) dipyridamole (Verified Allergy, Mild, headache, nausea, 09/06/16) Adhesives (Verified Allergy, Unknown, 09/06/16) pentazocine (Verified Allergy, Unknown, Hallucinations, 09/06/16) fluticasone (Verified Adverse Reaction, Severe, Hives, 09/06/16) Nose swelling methadone (Verified Adverse Reaction, Severe, HIVES, 09/06/16) morphine (Verified Adverse Reaction, Severe, Rash,Itching,, 09/06/16) oxycodone (Verified Adverse Reaction, Severe, HIVES,SWELLING, 09/06/16) pravastatin (Verified Adverse Reaction, Severe, Hives, 09/06/16) Muscle pain codeine (Verified Adverse Reaction, Intermediate, DIZZY, UNSTEADY, 09/06/16 ) "depends on product" Uncoded Allergies: PROPIONATE (Allergy, Severe, FACIAL SWELLING, 05/29/16) Home Medications Scheduled ([super b-50 complex]) 1 TABLET PO DAILY (Reported) Cholecalciferol (Vitamin D3) (Vitamin D3) 5,000 Unit Tablet 5,000 UNIT PO DAILY (Reported) Clopidogrel Bisulfate (Plavix) 75 Mg Tablet 75 MG PO DAILY (Reported) Docusate Sodium (Docusate Sodium) 250 Mg Capsule 250 MG PO BID (Reported) Labetalol (Labetalol) 100 Mg Tablet 100 MG PO QID (Reported) Take 1/2 to 1 tablet four times daily. Levothyroxine (Levothyroxine) 100 Mcg Tablet 100 MCG PO DAILY (Reported) Lisinopril (Lisinopril) 2.5 Mg Tablet 1.25 MG PO BID (Reported) Multivitamin (Multi Vitamin Daily) 1 Each Tablet 1 EACH PO HS (Reported) [place]-3/Dha/Epa/Fish Oil (Fish Oil 1,000 mg Softgel) 1 Each Capsule 1 EACH PO TID (Reported) Pantoprazole DR (Protonix) 40 Mg Tablet.dr 40 MG PO BID (Reported) Polyethylene Glycol 3350 (Miralax) 17 Gm Powd.pack 17 GM PO DAILY (Reported) Psyllium Husk (Metamucil) 3.4 Gram/5.4 Gram Powder 0 PO HS (Reported) Spironolactone (Spironolactone) 25 Mg Tablet 1-2 TABLET PO DAILY (Reported) Ubidecarenone/Vit E Acetate (Co Q-10 100 mg Softgel) 1 Each Capsule 2 EACH PO HS (Reported) Scheduled PRN Albuterol Sulfate (Ventolin HFA Inhaler) 200 Puff/18 Gm Inhaler 2 PUFF INH Q4 PRN PRN For Wheezing (Reported) Diazepam (Valium) 10 Mg Tablet 10 MG PO Q4-6H PRN PRN For Anxiety Hydrocodone-Acetaminophen 10-325 mg (Hydrocodone-Acetaminophen 10-325 mg) 1 Each Tablet 1-2 TABLET PO Q4H PRN PRN For Pain Sennosides (Senna) 8.6 Mg Tablet 8.6 MG PO DAILY PRN PRN PRN For Constipation ( Reported) PMH 1. Coronary artery disease. 2. Gastroesophageal reflux disease. She underwent fundoplication by Dr. Jareth Griggs and still has a small hernia. 3. Hypertension. 4. History of multiple strokes and TIA. 5. Thoracic ascending aortic aneurysm reportedly 4.7 cm. Patient is scheduled to have an ultrasound and CT of her chest next month. 6. Valvular heart disease. Patient denies this which is part of her computerized record. 7. History of thyroid cancer status post total thyroidectomy. Surgical History History of cervical spine fusion C3 through C7 History of lumbar spine fusions L2 through L5 History of a "disc bulge" in thoracic spine. History of open reduction internal fixation of the right wrist 2 after 3 breaks her last surgery was by Dr. Te Escalera on 05/31/2016 History of a thyroidectomy. History of cholecystectomy with 26 stones found in her common bile duct. History of bilateral cataract surgery and laser surgery of her left eye. Family History Patient's father of a massive MD at the age of 50 Patient's mother at 84 from a massive cerebrovascular accident Patient had one sister who of recurrent breast cancer Patient has 1 brother who is in need of a cardiac transplant and is refusing to get one. Patient has 1 brother who of a brain hemorrhage. Social History Hx Alcohol Use: No Hx Substance Use: No Hx Tobacco Use: No Smoking Status: Never Smoker Living Arrangement: with Family Additional Information Patient is a seventh day Yazidi was born in [facility]. She then moved to [place] with her family and graduated appropriate atrial high school there. She then went to college in several different states. 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 Her first was a seventh day Yazidi. Her second third and fourth husbands were not. She has been to her fourth now for 27 years. His name is Hussein and he is at the bedside. Patient is 4 para 2 M2 with 1 ectopic . 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 Then she went to [employer] in the [place] and then moved back to [place] in 1996. Patient currently lives with her fourth Hussein in [place]. Exam Vital Signs Vital Sign - Last Date Time Temp Pulse Resp B/P Pulse Ox O2 Delivery O2 Flow Rate FiO2 09/06/16 19:36 36.6 62 18 182/103 98 Room Air Exam General: Patient is in no apparent distress. HEENT: Head is atraumatic and normocephalic. Eyes: Pupils are equally round and reactive to light and accommodation. Extraocular muscles are intact. Sclera are white, anicteric. Subconjunctival mucosa is pink. Ears and nose are unremarkable. Oropharynx: There is no mucosal lesions, there is no thrush, there is no pharyngitis. There appears be a slight left facial droop. Neck: Is supple, there are no nodes, or masses or tenderness. Chest: Is clear to auscultation and percussion. There are no rales, rhonchi, wheezes or rubs. Heart: Rate, rhythm is regular. There is no murmur, rub or gallop. Abdomen: Good bowel sounds are present. Abdomen is obese, soft, nontender, no organomegaly or masses were appreciated. Extremities: Are symmetrical and well perfused except for recent surgical scar on the volar aspect of the right wrist.. There is trace edema of the lower extremities, there is no cellulitis, no rash. Neurologic: There is a slight left facial droop. Patient's smile is normal however. The remainder of the cranial nerves appear to be intact. There is left upper extremity weakness which appears more prominent when examining the patient then observing the patient. There is left lower extremity venous however the patient is able to lift her leg up off the mattress of the bed. Psychiatric: Patients mood is calm and shows no sign of agitation. Genital: Deferred Rectal: Deferred Lab and Diagnostics Result Diagram: 09/06/[id number]/[id number] Assessment & Plan Patient is a 70-year-old obese white female with history of multiple CVAs, TIAs , coronary artery disease and hypertension with a history of a 4.7 cm ascending thoracic aortic aneurysm who had a slightly elevated blood pressure this morning and she called Dr. Sheets's(sp?) office to his nurse Javy who recommended that she call Dr. Rod office as Dr. Sheets's(sp?) Was out of town. The patient called Dr. Rod's office and told the triage nurse that her blood pressure was 179/109 and that she did use the maximum doses of labetalol and lisinopril that she was allowed to use. The triage nurse told her to go to the emergency room. On coming to the emergency room patient dated that she had blurry vision and it felt like an elephant was sitting on her chest and she was cold and clammy and then she developed left-sided weakness of her left upper extremity and left lower extremity. Patient was evaluated by Dr. Devyn Santiago who also noted that she had left upper extremity weakness and even greater left lower extremity weakness. A code stroke was called immediately. Her NIH stroke score was 3 for left upper extremity dysmetria and left lower extremity weakness. She reported subjective blurry vision but was able to count fingers and read words. A CT scan of the head showed no hemorrhage. Dr. Olivas from [facility] a stroke neurologist was called immediately who reviewed the CT scan and thought there may be a developing left occipital infarct and recommended that the patient not receive TPA. She recommended admission for MRI and mild lowering of blood pressure. The patient' s troponins were negative. No acute changes on EKG and patient was admitted to the hospitalist service. # Cerebrovascular accident present at the time of admission and ongoing. She has a history of multiple strokes and TIAs. - This could be a recrudescence of the patient's previous strokes - Upon accepting the patient I immediately contacted Dr. Freedom Ambrizuck the patient's neurologist. He was kind enough to return my call and agreed with Dr. Olivas that the patient should not receive TPA. He recommended that patient receive aspirin and continue on her Plavix. He recommended an MRI and he would see the patient in the morning. We will follow his recommendations. - Check MRI stroke protocol of the brain and neck - Speech Therapy has been consulted for cognitive evaluation and swallow evaluation. - Physical therapy and occupational therapy were consulted for evaluation and treatment. - Progressive hypertension to a point as patient has a 4.7 cm ascending thoracic aortic aneurysm. - Patient states that she is allergic to "all statins" - Continue aspirin and Plavix. Patient's primary care physician recently discontinued aspirin for fear of developing "pockets" in her stomach. # Chest pain ascribed as a pressure at the time of admission to the emergency room. She has no further chest pain - Patient has a history of Coronary artery disease - Check serial troponins - , Telemetry monitoring # Gastroesophageal reflux disease - Continue proton pump inhibitor # Hypertension - Patient received IV labetalol in the emergency room. - Continue oral labetalol here, however will allow permissive hypertension due to presence of a stroke. # Patient has a history of a thoracic ascending aortic aneurysm reportedly 4.7 cm present at the time of admission and chronic. - She is scheduled for repeat CT and ultrasound of her chest next month to reevaluate this aneurysm. - Continue close monitoring # History of thyroid cancer - Status post thyroidectomy - Check TSH in a.m. - Continue replacement therapy Disposition: She will likely be here more than 2 minutes for the evaluation and treatment of the above conditions. Therefore, will admit the patient is an inpatient. Pain Evaluation: Adequate Pain Control GI Prophylaxis: Proton Pump Inhibitor VTE Prophylaxis: Sub-Q Enoxaparin Jorge Caban MD Sep 06, 2016 22:10
[2016-09-06] MEDS: Pantoprazole 40 mg ER24 Tablet PO SCH (22:32)
[2016-09-06 22:54] LABS: APPEARANCE,URINE CLEAR (CLEAR,HAZY); COLOR,URINE YELLOW (YELLOW); OCCULT BLOOD,URINE NEGATIVE (NEGATIVE); PH,URINE 5.5 (5.0-8.0); UROBILINOGEN,URINE NORMAL (NORMAL)
[2016-09-07] VITALS (8 sets, daily range): BP systolic 97–166; BP diastolic 65–90; PULSE 51–75; RESP 20; O2SAT 95–98
[2016-09-07] MEDS: Sodium Chloride LOK Flush 10 mL Syringe IVFLUSH SCH ×3 (00:30→17:11)
--- NOTE | 2016-09-07 00:38 | NUR ---
BP Pt's blood pressure is 97/65. HR 60. Pt states that she feels "a little different". The pt has drank about 400cc of fluids this evening. She requests water to drink. Given. Plan to recheck BP in 2 hours.
[2016-09-07 02:35] LABS: BASOPHILS % (AUTO) 0.6 % (0-3); EOSINOPHILS % (AUTO) 3.4 % (0-5); Mean Corpuscular Hemoglobin 33.6 pg (27.0-35.0); Mean Corpuscular Volume 98.5 fL (81-100); NEUTROPHILS % (AUTO) 39.5 % (40-74); Platelet Count 219 bil/L (150-400)
[2016-09-07 03:03] LABS: TROPONIN T 0.01 ug/L (0.0-0.011)
[2016-09-07 03:14] LABS: Magnesium 1.9 mg/dL (1.6-2.6)
[2016-09-07] MEDS: Pantoprazole 40 mg ER24 Tablet PO SCH ×2 (09:03→17:07)
[2016-09-07] MEDS: HYDROcodone-APAP 10-325 mg PO PRN ×2 (09:05→17:08)
--- NOTE | 2016-09-07 09:18 | DRSVH ---
PROCEDURE: X-RAY CHEST, TWO VIEWS ([id number]) INDICATIONS: possible aspiration pneumonitis after CVA TECHNIQUE: 2 views of the chest were acquired. COMPARISON: [facility], CR, XR CHEST 1VW (PORTABLE), 03/04/2015, 20:55. [facility], CR, CHEST 1VW (PORTABLE), 09/30/2014, 10:23. FINDINGS: Surgical changes and devices: Lower cervical spine fixation hardware. Lungs and pleura: No pleural effusions or pneumothorax. Lungs are clear. Mediastinum: Mediastinal contours are normal. Heart size is normal. Bones and chest wall: No suspicious bony abnormalities. Soft tissues appear unremarkable. IMPRESSION: No acute cardiopulmonary disease. Dictated by: Michael Ross RRAlessandro Interpreted: Nori Macias MD on 09/07/2016 at 9:16 Transcribed by: CRISTO on 09/07/2016 at 9:18 Approved by: Nori Macias M.D. on 09/09/2016 at 9:27
--- NOTE | 2016-09-07 11:55 | DRSVH ---
PROCEDURE: US BILATERAL DUPLEX DOPPLER IMAGING OF THE CAROTIDS ([id number]) INDICATIONS: Stroke TECHNIQUE: Color and pulse Doppler interrogation was performed of both carotid systems, with image d ocumentation and velocity measurements. COMPARISON: None. FINDINGS: All stenosis calculations are based on NASCET criteria. Right side: Brachial blood pressure: 129/85 mm Hg. Common Carotid Artery(Distal) PSV: 41.20 cm/s Internal Carotid Artery PSV- Proximal: 39.10 cm/s Mid-lon.10 cm/s Distal: 47.50 cm/s EDV - Proximal: 17.20 cm/s Mid-lon.60 cm/s Distal: 19.80 cm/s External Carotid Artery(Proximal) PSV: 48.40 cm/s, 59.30 cm/s ICA/CCA PSV ratio: 1.0 Tejeda scale imaging description: Minimal plaque. Percent internal carotid artery stenosis: Less than 50%. Vertebral artery: Flow direction is antegrade. Left side: Brachial blood pressure: Not obtained. Common Carotid Artery(Distal) PSV: 45.50 cm/s Internal Carotid Artery PSV - Proximal: 45 cm/s Mid-lon.70 cm/s Distal: 61 cm/s EDV - Proximal: 15.10 cm/s Mid-lon.30 cm/s Distal: 28.20 cm/s External Carotid Artery(Proximal) PSV: 66.90 cm/s ICA/CCA PSV ratio: 1.3 Tejeda scale imaging description: Minimal plaque. Percent internal carotid artery stenosis: Less than 50%. Vertebral artery: Flow direction is antegrade. IMPRESSION: Less than 50% bilateral internal carotid artery stenosis. Dictated by: Michael Ross Alessandro Interpreted: Nori Macias MD on 09/07/2016 at 9:03 Transcribed by: VINOD on 09/07/2016 at 14:55 Approved by: Nori Macias M.D. on 09/09/2016 at 10:06
--- NOTE | 2016-09-07 14:47 | DRSVH ---
PROCEDURE: MRI BRAIN WITHOUT CONTRAST ([id number]) INDICATIONS: Stroke TECHNIQUE: Non-contrast axial T1 spin echo, axial T2 fast spin echo, sagittal and axial FLAIR, coronal T2 fast s pin echo, axial gradient echo, axial diffusion and ADC through the brain. COMPARISON: [facility], CT, CT BRAIN WO CON, 10/07/2015, 17:25. [facility], CT, BRAIN (TPA), 09/06/2016, 17:24. FINDINGS: Image quality: Excellent. CSF spaces: Ventricles appear symmetric in size and shape. Basal cisterns are patent. No extra-axi al fluid collections. Brain: No intracranial bleeds or mass effects. There is cerebral volume loss for age. There are pe riventricular and deep white matter chronic small vessel ischemic changes. Brainstem appears normal. Diffusion-weighted images show no acute ischemic insults. Chronic left long lacunar infarct is stab le compared to prior examinations. A few, scattered, punctate foci of increased T2 signal noted in th e periventricular and subcortical white matter tracts. No susceptibility weighted abnormalities are i dentified the brain parenchyma. Normal intravascular flow voids are present. Skull and face: Calvarial bone marrow is normal in signal. Orbits are normal. Sinuses: Sinuses and mastoids are clear. IMPRESSION: 1. No acute intracranial disease process. 2. Old left thalamic lacunar infarct. 3. Mild periventricular and subcortical white matter chronic microvascular ischemic changes. Dictated by: Kim Jernigan MD, PhD on 09/07/2016 at 14:41 Approved by: Kim Jernigan MD, PhD on 09/07/2016 at 14:46
--- NOTE | 2016-09-07 15:27 | DRSVH ---
PROCEDURE: MRA ANGIOGRAM HEAD WITHOUT CONTRAST ([id number]) INDICATIONS: Stroke TECHNIQUE: Noncontrast axial 3-D [id number] MR angiogram, with 3-dimensional maximum intensity projection (M IP) reformats of the internal carotid arteries and posterior circulation then performed. COMPARISON: [facility], MR, MR BRAIN WO CON, 10/07/2015, 18:46. [facility], CT, CT BRAIN WO CON, 10/07/2015, 17:25. [facility], MR, MR BRAIN WO CON, 09/11/2015, 16:47 . [facility], CT, CT BRAIN WO CON, 05/23/2016, 14:50. [facility], CT, BRAIN (TPA), 09/06/2016, 17:24. [facility], MR, MR ANGIO HEAD WO CON, 09/11/2015, 16:47. FINDINGS: Image quality: Excellent. Anterior circulation: Intracranial internal carotid arteries demonstrate normal size and intralumina l flow signal. The flow within the paired anterior cerebral arteries is normal and symmetric. The f low within the middle cerebral arteries is normal and symmetric. The anterior communicating artery i s seen. No stenoses, occlusions, or aneurysms. Posterior circulation: Visualized portions of the vertebral arteries demonstrate normal caliber, and join to form a normal appearing basilar artery. The flow within the posterior cerebral arteries is normal and symmetric. Focal, short segment stenosis noted in the P1 segment of the left posterior cer ebral artery. No stenoses, occlusions, or aneurysms. IMPRESSION: 1. Moderate-grade, short segment stenosis of the P1 segment of the left posterior cerebral artery. 2. Otherwise, normal MR angiogram of the head. Dictated by: Kim Jernigan MD, PhD on 09/07/2016 at 15:02 Approved by: Kim Jernigan MD, PhD on 09/07/2016 at 15:25
--- NOTE | 2016-09-07 16:13 | NUR ---
spiritual care: follow up brief visit pt's in room. shared updates.
[2016-09-07] MEDS: Polyethylene Glycol (PEG) 17 Gm Powder PO PRN (17:30)
--- NOTE | 2016-09-07 17:43 | NUR ---
The pt is safely tolerating a general diet and her Brain MRI did not reveal any acute changes. ST will sign off at this time. Please re-order if the pt develops any new or worsening symptoms.
--- NOTE | 2016-09-07 19:14 | NUR ---
Blood Pressure: Patient was concerned about her B/P being elevated. Checked her B/P and it was 117/62 HR was in the 70s. Patient called nurse into room later and requested her B/P checked and it was 171/64 Per patient she generally takes Lisinopril for her B/P at home. MD reordered her Lisinopril to be given this evening. Patient was also given her antianxiety med she requested.
[2016-09-07] MEDS: Omega-3 Fatty Acids 1,000 mg Capsule PO SCH (20:53)
[2016-09-07] MEDS: Vitamin B Complex/Vit C Tablet PO SCH (20:59)
--- NOTE | 2016-09-07 21:43 | CONS ---
[address] [address] CONSULTATION REPORT PATIENT: SAMARA LEONG : 1945 MR#: [id number] ADMIT: 09/06/2016 JOB ID: [id number] DATE OF SERVICE: 09/07/2016 CHIEF COMPLAINT: Sudden onset of left face, left arm and left leg weakness. HISTORY OF PRESENTING ILLNESS: The patient is a very pleasant 70-year-old woman with multiple medical problems, including a history of recurrent strokes and transient ischemic attacks as well as an ascending thoracic aortic aneurysm followed closely by Dr. Freedom David in [place], a admin secretary. She reports that symptoms started around 4 o'clock yesterday. She was bringing her home from his dental appointment. Today when I saw her, she reports that she feels back to baseline. She was seen and evaluated in the emergency department. Her case was discussed by the emergency department physician with Dr. Olivas of [facility] and Dr. Olivas stated that she was not a candidate for tissue plasminogen activator therapy. I was subsequently called by Dr. Caban. Her NIH stroke scale initially was 2 for left leg motor drift and 1 for limb ataxia in the left leg for a total score of 3. Recently, she stopped taking aspirin due to concerns about the possibility of diverticulitis and associated bleeding risk. She also developed stomach pain and at that time she was told to stop taking aspirin. She reports that presently her symptoms have returned to baseline. She is very concerned about her blood pressures and we did discuss why her blood pressure medications for halved for the 1st 24 hours after onset of her symptoms. We did explain management on stroke protocol in detail. I explained to her that I suspect that she did have a transient ischemic attack. PAST MEDICAL HISTORY: Remarkable for multiple strokes and transient ischemic attacks, coronary artery disease, gastroesophageal reflux disease, hypertension, thoracic ascending aortic aneurysm approximately 4.7 cm, valvular heart disease, history of thyroid cancer status post total thyroidectomy presently on levothyroxine. PAST SURGICAL HISTORY: Status post thoracic spinal fusions, status post right wrist repair, status post thyroidectomy. FAMILY HISTORY: No neurologic disorders. SOCIAL HISTORY: No tobacco, alcohol, or drugs. She is a retired nurse. I see both her and her in my clinic. She also does follow closely with a social contact worker. ALLERGIES: She does have multiple allergies includin. CONTRAST. 2. ATENOLOL. 3. CHLORPROMAZINE. 4. CLONIDINE. 5. DROPERIDOL. 6. ZETIA. 7. IODINE. 8. MONOSODIUM GLUTAMATE. 9. PROCHLORPERAZINE. 10. SHELLFISH. 11. TRIAMCINOLONE. 12. TRIFLUOPERAZINE. 13. ATORVASTATIN. 14. SIMVASTATIN. 15. DIPYRIDAMOLE. 16. ADHESIVE TAPE. 17. PENTAZOCINE. 18. FLUTICASONE. 19. METHADONE. 20. MORPHINE. 21. OXYCODONE. 22. PRAVASTATIN. 23. CODEINE. 24. PROPIONATE. HOME MEDICATIONS: 1. Super B complex. 2. Vitamin D. 3. Plavix 75 mg daily. 4. Docusate. 5. Labetalol. 6. Levothyroxine. 7. Lisinopril. 8. Multivitamin. 9. Elkin-3 fish oil. 10. Pantoprazole. 11. Polyethylene glycol. 12. Psyllium. 13. Spironolactone. 14. CoQ-10. 15. Albuterol. 16. Diazepam. 17. Hydrocodone/acetaminophen. 18. Sennosides. She also reports that she did have blurred vision at the time of this event. She reports that presently she has returned to baseline. Physical Therapy noted a slight weakness of the left lower extremity. However, she is able to ambulate without difficulty. We did review in detail her MRI at the bedside. Chest x-ray: No acute cardiopulmonary disease. CT of the head was performed. I reviewed this in detail. I do not believe that there was any acute stroke that I appreciated on the CT of the head, nonacute right temporal lobe and left thalamic lobe ischemic insults were noted. I did review her magnetic resonance imaging study of the brain today in detail. Due to her history of contrast allergies, she was unable to obtain the magnetic resonance imaging study last night, however, was able to obtain it this morning and it did demonstrate no acute intracranial disease process, old left thalamic lacunar infarcts and evidence of multiple prior infarcts which are read on the MRI as mild periventricular and subcortical white matter, chronic microvascular ischemic changes. However, these represent to me small prior lacunar infarcts. A carotid duplex was performed, demonstrating less than 50% bilateral internal carotid artery stenosis and the MRA demonstrated moderate grade short-segment stenosis of the P1 segment of the left posterior cerebral artery. Otherwise, normal MR angiogram of the head. LABORATORY STUDIES: WBC of 6.1, hemoglobin 14.8, hematocrit 42.8, platelets of 240. Chemistries: Sodium 142, potassium 3.8, chloride was 103, bicarb 23, BUN 20, creatinine 0.69, glucose 93, triglycerides 292, cholesterol 207, LDL cholesterol 92.6, HDL cholesterol 56 and TSH 7.120. Tox screen positive for amphetamines and benzodiazepines. Coags: PT was 10.4, INR 0.97, PTT was 25.9. REVIEW OF SYSTEMS: A complete review of systems was performed and was remarkable for above noted. PHYSICAL EXAMINATION: Temperature 36.8, pulse of 51, respiratory rate of 20, blood pressure 166/90, pulse oximetry 95% on room air. General: She is a well-developed, well-nourished woman, in no acute distress. Head: Normocephalic, atraumatic. Neck is supple. No carotid bruits were auscultated. Chest: Clear to auscultation. Heart: Regular rate and rhythm. Abdomen: Soft, nondistended, nontender. Extremities: No cyanosis, clubbing, or edema. NEUROLOGIC EXAMINATION: Mental status: She is awake, alert, oriented x3. Speech clear and fluent with intact comprehension. There was no aphasia. Mood was euthymic, however, she did appear anxious. Cranial nerves: Pupils equal, round, reactive to light. Extraocular movements were smooth and conjugate with no evidence of nystagmus. Face appeared symmetrical. Facial sensation was intact to light touch and temperature. Auditory sensation was intact to finger rub. Palatal elevation was symmetrical. Tongue was midline. Sternocleidomastoid and trapezii were 5/5 bilaterally. Motor: Normal tone and bulk. Muscle strength 5/5 throughout. Sensation: Intact to light touch and temperature. Coordination: [id number] was intact bilaterally with no evidence of dysmetria. Deep tendon reflexes: 2+ and symmetrical. Plantars were equivocal bilaterally. Gait: She does ambulate with a walker. Appeared to have a narrow-based gait. IMPRESSION: Suspect a transient ischemic attack. RECOMMENDATIONS: Continue stroke protocol. I did discuss with her adding aspirin 81 mg daily to her regimen as this event did occur on Plavix alone. We also discussed the importance of continued optimization of control for stroke risk factors. She is concerned about statins and potential side effects. We discussed obtaining an echocardiogram. The echocardiogram has yet to be performed today. She is concerned as her admin secretary, Dr. Freedom David, is presently in [place]. We discussed the importance of optimizing control of her blood pressures as there has been some variation here in the hospital between elevated blood pressures with systolics of 180 to a low blood pressure with a systolic of 97. At this point, we did discuss slowly titrating her blood pressure medication upward as needed. It was reduced as part of stroke protocol to half a dose for the 1st 24 hours due to the role of cerebral perfusion and the potential for preserving a cortical penumbra in an acute cerebrovascular accident. In this case, she has returned to baseline with the exception of a mild degree of weakness in her left lower extremity noted by Physical Therapy. Based on this, I strongly suspect that she did have a transient ischemic attack. At this point, I would like to increase her diazepam to every 4 hours as needed for anxiety as well as restart her lisinopril at 10 mg twice daily. I do recommend that if her blood pressures continued to rise despite this that we continue to slowly optimize control with a gradual increase in either lisinopril or the labetalol or both. I also advised her that I would like her to take her blood pressures three times a day for at least one week and then call my office with the results and we will make changes accordingly until she is able to follow up with Dr. Rod and Dr. Freedom David. I look forward to seeing her in followup in the clinic, however, I strongly recommend that she follow up with her primary care physician, Dr. Rod as well as Dr. Freedom David in addition to seeing me in followup. I will come by tomorrow after her echocardiogram as well to examine her and see her. We discussed the importance of continued optimization of control of her stroke risk factors. I do suspect that the recent stress involving her 's medical condition, he is presently being considered for a cochlear implant and has noted continued severe migraines, also has predisposed her to increased anxiety which may also have contributed to this transient ischemic attack. We discussed the importance of obtaining adequate sleep and controlling anxiety as much as can be possible given life circumstances. She may benefit at some point from seeing a psychologist or therapist as an outpatient. Thank you, again, Dr. Caban, for allowing me to participate in the care of our mutual patient. This has been a pleasure to see her here in consultation and thank you again for this referral. Please feel free to contact me with any questions or concerns. Patient education was provided. Questions were sought and answered. Greater than 50% of this 70 minute visit were devoted to counseling regarding treatment and management of her transient ischemic attack. DVEAN
[2016-09-08] MEDS: Sodium Chloride LOK Flush 10 mL Syringe IVFLUSH SCH ×2 (00:30→07:43)
--- NOTE | 2016-09-08 00:39 | PCM.PNMED ---
Subjective Date of Service Sep 08, 2016 Subjective Patient is feeling much better today her strength is back to baseline on her left side. She is able ambulate in the hallway with physical therapy. However , she was hoping to have neuro checks every hour throughout the day even though her neurological function had normalized, and she was cleared by physical therapy. He has no other new complaints. She is concerned about her blood pressure. Exam Vital Signs Vital Sign - Last Date Time Temp Pulse Resp B/P Pulse Ox O2 Delivery O2 Flow Rate FiO2 09/07/16 20:23 36.7 60 20 160/87 98 Room Air Intake and Output 09/07/16 09/07/16 09/08/16 Cumulative From/Thru 15:00 23:00 07:00 09/06/16 16:37 - 09/07/16 20:28 Intake Total 500 ml 1400 ml 1900 ml Output Total 200 ml 1675 ml 1875 ml Balance 300 ml -275 ml 25 ml Intake Oral 500 ml 1400 ml 1900 ml Output Urine Total 200 ml 1675 ml 1875 ml Exam General: Patient is in no apparent distress. HEENT: Head is atraumatic and normocephalic. Eyes: Pupils are equally round and reactive to light and accommodation. Extraocular muscles are intact. Sclera are white, anicteric. Subconjunctival mucosa is pink. Ears and nose are unremarkable. Oropharynx: There is no mucosal lesions, there is no thrush, there is no pharyngitis. There appears be a slight left facial droop. Neck: Is supple, there are no nodes, or masses or tenderness. Chest: Is clear to auscultation and percussion. There are no rales, rhonchi, wheezes or rubs. Heart: Rate, rhythm is regular. There is no murmur, rub or gallop. Abdomen: Good bowel sounds are present. Abdomen is obese, soft, nontender, no organomegaly or masses were appreciated. Extremities: Are symmetrical and well perfused except for recent surgical scar on the volar aspect of the right wrist.. There is trace edema of the lower extremities, there is no cellulitis, no rash. Neurologic: The left-sided weakness has resolved. Psychiatric: Patients mood is calm and shows no sign of agitation. Genital: Deferred Rectal: Deferred Lab and Diagnostics Result Diagram: 09/07/1620809/07/16208 Microbiology Name: SAMARA LEONG Alessandro Age/Sex: 70/F Attend Dr: Jorge Caban Acct: [id number] Unit: [id number] Status: ADM IN [place] [facility] [place] 3020-1 Re09/06/16 Disch: Specimen: [id number] Collected: 09/07/16 Status: COMP Req#: [id number] Received: 09/07/16 Source: APRYL Doherty Desc : Subm Dr: Jorge Caban MD Ordered: CHRISTY MRSA PCR Comments: Collected in inappropriate collection swab. New MRSA PCR requires a red top dual sponge swab. Please recollect. LAG called to Rosalia Wu to recollect 09/07 Collected by Nurse/Unit? Y/N Y Procedure Result Verified Site Microbiology CHRISTY MRSA PCR Final 09/07/16-1106 MRSA BY PCR NEGATIVE REFERENCE INTERVAL NEGATIVE X-Rays, CTs and MRIs PROCEDURE: MRA ANGIOGRAM HEAD WITHOUT CONTRAST ([id number]) INDICATIONS: Stroke TECHNIQUE: Noncontrast axial 3-D avmy-ig-hoxwym MR angiogram, with 3-dimensional maximum intensity projection (MIP) reformats of the internal carotid arteries and posterior circulation then performed. COMPARISON: [facility], MR, MR BRAIN WO CON, 10/07/2015, 18:46. [facility], CT, CT BRAIN WO CON, 10/07/2015, 17:25. [facility], MR, MR BRAIN WO CON, 09/11/2015, 16:47. [facility], CT, CT BRAIN WO CON, 05/23/2016, 14:50. [facility], CT, BRAIN (TPA), , 17:24. [facility], MR, MR ANGIO HEAD WO CON, 09/11/2015, 16 :47. FINDINGS: Image quality: Excellent. Anterior circulation: Intracranial internal carotid arteries demonstrate normal size and intraluminal flow signal. The flow within the paired anterior cerebral arteries is normal and symmetric. The flow within the middle cerebral arteries is normal and symmetric. The anterior communicating artery is seen. No stenoses, occlusions, or aneurysms. Posterior circulation: Visualized portions of the vertebral arteries demonstrate normal caliber, and join to form a normal appearing basilar artery. The flow within the posterior cerebral arteries is normal and symmetric. Focal , short segment stenosis noted in the P1 segment of the left posterior cerebral artery. No stenoses, occlusions, or aneurysms. IMPRESSION: 1. Moderate-grade, short segment stenosis of the P1 segment of the left posterior cerebral artery. 2. Otherwise, normal MR angiogram of the head. Dictated by: Kim Jernigan MD, PhD on 09/07/2016 at 15:02 Approved by: Kim Jernigan MD, PhD on 09/07/2016 at 15:25 PROCEDURE: MRI BRAIN WITHOUT CONTRAST ([id number]) INDICATIONS: Stroke TECHNIQUE: Non-contrast axial T1 spin echo, axial T2 fast spin echo, sagittal and axial FLAIR, coronal T2 fast spin echo, axial gradient echo, axial diffusion and ADC through the brain. COMPARISON: [facility], CT, CT BRAIN WO CON, 10/07/2015, 17:25. [facility], CT, BRAIN (TPA), 09/06/2016, 17:24. FINDINGS: Image quality: Excellent. CSF spaces: Ventricles appear symmetric in size and shape. Basal cisterns are patent. No extra-axial fluid collections. Brain: No intracranial bleeds or mass effects. There is cerebral volume loss for age. There are periventricular and deep white matter chronic small vessel ischemic changes. Brainstem appears normal. Diffusion-weighted images show no acute ischemic insults. Chronic left long lacunar infarct is stable compared to prior examinations. A few, scattered, punctate foci of increased T2 signal noted in the periventricular and subcortical white matter tracts. No susceptibility weighted abnormalities are identified the brain parenchyma. Normal intravascular flow voids are present. Skull and face: Calvarial bone marrow is normal in signal. Orbits are normal. Sinuses: Sinuses and mastoids are clear. IMPRESSION: 1. No acute intracranial disease process. 2. Old left thalamic lacunar infarct. 3. Mild periventricular and subcortical white matter chronic microvascular ischemic changes. Dictated by: Kim Jernigan MD, PhD on 09/07/2016 at 14:41 Approved by: Kmi Jernigan MD, PhD on 09/07/2016 at 14:46 Assessment & Plan Patient is a 70-year-old obese white female with history of multiple CVAs, TIAs , coronary artery disease and hypertension with a history of a 4.7 cm ascending thoracic aortic aneurysm who had a slightly elevated blood pressure this morning and she called Dr. Sheets's(sp?) office to his nurse Javy who recommended that she call Dr. Rod office as Dr. Sheets's(sp?) Was out of town. The patient called Dr. Rod's office and told the triage nurse that her blood pressure was 179/109 and that she did use the maximum doses of labetalol and lisinopril that she was allowed to use. The triage nurse told her to go to the emergency room. On coming to the emergency room patient dated that she had blurry vision and it felt like an elephant was sitting on her chest and she was cold and clammy and then she developed left-sided weakness of her left upper extremity and left lower extremity. Patient was evaluated by Dr. Devyn Santiago who also noted that she had left upper extremity weakness and even greater left lower extremity weakness. A code stroke was called immediately. Her NIH stroke score was 3 for left upper extremity dysmetria and left lower extremity weakness. She reported subjective blurry vision but was able to count fingers and read words. A CT scan of the head showed no hemorrhage. Dr. Olivas from [facility] a stroke neurologist was called immediately who reviewed the CT scan and thought there may be a developing left occipital infarct and recommended that the patient not receive TPA. She recommended admission for MRI and mild lowering of blood pressure. The patient' s troponins were negative. No acute changes on EKG and patient was admitted to the hospitalist service. # Transient ischemic attack or reversible ischemic neurological deficit present at the time of admission and resolving. She has a history of multiple strokes and TIAs. Vision appeared to fail Plavix therapy alone - This could be a recrudescence of the patient's previous strokes - Upon accepting the patient I immediately contacted Dr. Freedom Lamb the patient's neurologist. He was kind enough to return my call and agreed with Dr. Olivas that the patient should not receive TPA. He recommended that patient receive aspirin and continue on her Plavix. He recommended an MRI and he would see the patient in the morning. We will follow his recommendations. - MRI of the brain and neck shows no acute disease - Speech Therapy has been consulted for cognitive evaluation and swallow evaluation. - Physical therapy and occupational therapy were consulted for evaluation and treatment. - Progressive hypertension to a point as patient has a 4.7 cm ascending thoracic aortic aneurysm. - Patient states that she is allergic to "all statins" - Continue aspirin and Plavix. Patient's primary care physician recently discontinued aspirin for fear of developing "pockets" in her stomach. # Chest pain ascribed as a pressure at the time of admission to the emergency room. She has no further chest pain - Patient has a history of Coronary artery disease - Check serial troponins - , Telemetry monitoring - Check echocardiogram pending # Gastroesophageal reflux disease - Continue proton pump inhibitor # Hypertension - Patient received IV labetalol in the emergency room. - Continue oral labetalol here, however will allow permissive hypertension due to presence of a stroke. # Patient has a history of a thoracic ascending aortic aneurysm reportedly 4.7 cm present at the time of admission and chronic. - She is scheduled for repeat CT and ultrasound of her chest next month to reevaluate this aneurysm. - Continue close monitoring # History of thyroid cancer - Status post thyroidectomy - Check TSH in a.m. - Continue replacement therapy Disposition: The patient remained stable and echocardiogram is unremarkable will likely discharge home tomorrow. Echocardiogram is still pending. Patient was seen with Dr. lamb today and he agrees with the above plan. Pain Evaluation: Adequate Pain Control GI Prophylaxis: Proton Pump Inhibitor VTE Prophylaxis: Sub-Q Enoxaparin Resuscitation Status: CPR: Attempt Resuscitation MeeJorge MD Sep 08, 2016 00:39
[2016-09-08 01:10] VITALS: BP 155/84; PULSE 57; RESP 20; O2SAT 96
[2016-09-08] MEDS: HYDROcodone-APAP 10-325 mg PO PRN ×2 (01:20→07:41)
--- NOTE | 2016-09-08 03:00 | NUR ---
Pain Pt stated that her back pain was rated at a 4. She requests vicodin and valium. Administered. Currently resting quielty. Eyes closed.
[2016-09-08 03:38] VITALS: PULSE 57
[2016-09-08 05:22] VITALS: BP 165/91; PULSE 58; RESP 20; O2SAT 96
[2016-09-08 06:29] LABS: BASOPHILS % (AUTO) 0.4 % (0-3); EOSINOPHILS % (AUTO) 5.1 % (0-5); MONOCYTES % (AUTO) 6.1 % (4-12); Mean Corpuscular Hemoglobin 33.3 pg (27.0-35.0); Mean Corpuscular Volume 98.6 fL (81-100); NEUTROPHILS % (AUTO) 38.8 % (40-74); Platelet Count 220 bil/L (150-400)
[2016-09-08 06:45] LABS: Magnesium 1.8 mg/dL (1.6-2.6)
[2016-09-08] MEDS: Polyethylene Glycol (PEG) 17 Gm Powder PO PRN (07:40)
[2016-09-08] MEDS: Pantoprazole 40 mg ER24 Tablet PO SCH (07:42)
[2016-09-08 08:00] VITALS: PULSE 64
--- NOTE | 2016-09-08 10:29 | NUR ---
Evaluation completed. Please go to "Notes" then click on "Assessments and Notes" (bottom left corner of screen). Then select appropriate discipline tab on top of screen.
[2016-09-08 12:20] VITALS: BP 155/75; PULSE 63; RESP 18; O2SAT 96
--- NOTE | 2016-09-08 14:15 | PCM.DIMED ---
Discharge Instructions Date of Service Sep 08, 2016 Dates of Hospitalization Sep 06, 2016 at 18:26 Discharge Diagnosis Discharge Diagnosis TIA with transient left sided weakness Diet Heart Healthy Activity No restrictions (Patient may resume usual activities gradually as tolerated) Call your provider Fever or Chills, Shortness of breath, Bleeding, Chest pain, Vomitting, Excessive diarrhea, Weakness (unilateral) Patient Instructions Follow-up Provider: Rubio Rod MD Follow-up with PCP in: 1 week Provider: Freedom Sanchez MD Follow-up in: 1 week Mid-level Provider (F9): CHELSI ROMERO MD Follow-up with Mid-level in: 1 week Jorge Caban MD Sep 08, 2016 14:15
--- NOTE | 2016-09-08 14:25 | DRSVH ---
[facility] [address] [place] [address] Echocardiogram Report Name: SAMARA LEONG Date: 09/08/2016 Height: 64 in Hospital Exam Location: [facility] Weight: 188 lb Gender: Female BSA: 1.9 m2 : 1945 Age: 70 yrs BP: 165/91 mmHg Reason For Study: CVA Ordering Physician: HOSPITALIST ABBEYerformed By: Howard Solano Referring Physician: Farheen Rod Interpretation Summary The ejection fraction is estimated to be 60-65%. There are no focal wall motion abnormalities. There is mild mitral regurgitation. There is mild aortic regurgitation. The right ventricular systolic pressure is estimated at 22 mmHg assuming a right atrial pressure of 3 mm Hg. Compared to the prior echo report on 10/07/2016, there is no significant change. Procedure: A two-dimensional transthoracic echocardiogram with color flow and Doppler was performed. The study quality was technically adequate. Comparison is made with the echocardiogram of 10/08/15. The patient was in normal sinus rhythm during the exam. Left Ventricle: The left ventricle is normal in size. There is normal left ventricular wall thickness. There is no thrombus. The ejection fraction is estimated to be 60-65%. There are no focal wall motion abnormalities. Right Ventricle: The right ventricle is normal in size and function. Atria: The left atrial size is normal. Right atrial size is normal. The interatrial septum is intact with no evidence for an atrial septal defect. Mitral Valve: The mitral valve is normal in structure and function. There is mild mitral regurgitation. Aortic Valve: The aortic valve is normal in structure and function. There is mild aortic regurgitation. Tricuspid Valve: The tricuspid valve is normal in structure and function. There is trace tricuspid regurgitation. The right ventricular systolic pressure is estimated at 22 mmHg assuming a right atrial pressure of 3 mm Hg. Pulmonic Valve: The pulmonic valve is normal in structure and function. There is trace pulmonic regurgitation. Great Vessels: The aortic root is normal size. The dimensions of the ascending aorta are normal. The pulmonary artery is normal size. Pericardium/ Pleura There is no pericardial effusion. There is no pleural effusion. MMode/2D Measurements & Calculations LVIDd: 4.1 cm RA long axis LVOT diam: 2.0 cm LVIDs: 2.7 cm LA A2 area: 23.7 cm AoV Opening FS: 35.5 % LA A4 area: 19.9 cm RA area EPSS: 0.42 cm LA length (vol) Ao root diam IVSd: 1.2 cm : 15.6 cm LVPWd: 1.2 cm LA vol: 70.3 ml RA vol Aortic Jxn: 3.6 cm LA vol index : 35.1 ml asc Aorta Diam RA : 18.4 mm2 Ao Arch Diam (Prox IVC diam: 1.2 cm Trans): 2.9 cm LV smith. diameter/BSA LV sys. diameter/BSA (cm/m^2): 2.2 (cm/m^2): 1.4 Doppler Measurements & Calculations Ao V2 max MV E max perfecto MV E/A: 0.61 TR max perfecto : 147.0 cm/sec : 53.1 cm/sec Med Peak E' Perfecto : 219.8 cm/sec Ao max PG MV A max perfecto TR max P.3 mmHg : 8.6 mmHg : 87.1 cm/sec E/E' med: 16.5 PA V2 max: 83.3 cm/sec Ao mean PG Pulm A Revs Dur PA mean P.4 mmHg PA Accel Time AI P1/2t MV A dur : 0.08 sec : 737.6 msec : 0.15 sec AI dec slope : 179.2 cm/s2c MV dec time Ao V2 mean PA V2 mean Pulm A Revs Dur - MV A : 0.27 sec : 106.8 cm/sec : 56.3 cm/sec Dur: -0.03 msec Ao V2 VTI PA pr(Bruno) : 36.6 cm : 36.2 mmHg Electronically signed by: Nayan Gustafson on Reading Physician:09/08/2016 02:24 PM
[2016-09-08] MEDS ORDERED: LABE100T4 PO (14:26)
[2016-09-08] MEDS ORDERED: Aspirin-Expunged Drug, Do Not Renew! PO (14:26)
--- NOTE | 2016-09-08 15:15 | NUR ---
Discharge Nursing Note: Patient was discharged to home at 1515. Patients IV was removed intact. Patients telemetry was discontinued. All of patients discharge information was reviewed with her and her questions were answered to her satisfaction. Patient was brought to the hospital lobby in a wheelchair by nursing staff member and she was driven to home by her .
--- NOTE | 2016-09-08 16:27 | NUR ---
spiritual care: follow up brief visit in corridor prior to discharge. pt reported on discharge plans
--- NOTE | 2016-09-09 01:12 | PCM.DC.MED ---
Discharge Summary Date of Service Sep 08, 2016 Dates of Hospitalization Date of Hospital Admission Sep 06, 2016 at 18:26 Date of Discharge: Sep 08, 2016 Providers: Admitting Physician: Jorge Caban MD Primary Care Physician: Rubio Rod MD Attending Physician: Jorge Caban MD Diagnosis at Time of Discharge Diagnosis at Time of Discharge TIA with transient left sided weakness Consultations Dr. Sanchez of neurology Procedures XRay, CTs & MRIs PROCEDURE: MRA ANGIOGRAM HEAD WITHOUT CONTRAST ([id number]) INDICATIONS: Stroke TECHNIQUE: Noncontrast axial 3-D [id number] MR angiogram, with 3-dimensional maximum intensity projection (MIP) reformats of the internal carotid arteries and posterior circulation then performed. COMPARISON: [facility], MR, MR BRAIN WO CON, 10/07/2015, 18:46. [facility], CT, CT BRAIN WO CON, 10/07/2015, 17:25. [facility], MR, MR BRAIN WO CON, 09/11/2015, 16:47. [facility], CT, CT BRAIN WO CON, 05/23/2016, 14:50. [facility], CT, BRAIN (TPA), , 17:24. [facility], MR, MR ANGIO HEAD WO CON, 09/11/2015, 16 :47. FINDINGS: Image quality: Excellent. Anterior circulation: Intracranial internal carotid arteries demonstrate normal size and intraluminal flow signal. The flow within the paired anterior cerebral arteries is normal and symmetric. The flow within the middle cerebral arteries is normal and symmetric. The anterior communicating artery is seen. No stenoses, occlusions, or aneurysms. Posterior circulation: Visualized portions of the vertebral arteries demonstrate normal caliber, and join to form a normal appearing basilar artery. The flow within the posterior cerebral arteries is normal and symmetric. Focal , short segment stenosis noted in the P1 segment of the left posterior cerebral artery. No stenoses, occlusions, or aneurysms. IMPRESSION: 1. Moderate-grade, short segment stenosis of the P1 segment of the left posterior cerebral artery. 2. Otherwise, normal MR angiogram of the head. Dictated by: Kim Jernigan MD, PhD on 09/07/2016 at 15:02 Approved by: Kim Jernigan MD, PhD on 09/07/2016 at 15:25 PROCEDURE: MRI BRAIN WITHOUT CONTRAST ([id number]) INDICATIONS: Stroke TECHNIQUE: Non-contrast axial T1 spin echo, axial T2 fast spin echo, sagittal and axial FLAIR, coronal T2 fast spin echo, axial gradient echo, axial diffusion and ADC through the brain. COMPARISON: [facility], CT, CT BRAIN WO CON, 10/07/2015, 17:25. [facility], CT, BRAIN (TPA), 09/06/2016, 17:24. FINDINGS: Image quality: Excellent. CSF spaces: Ventricles appear symmetric in size and shape. Basal cisterns are patent. No extra-axial fluid collections. Brain: No intracranial bleeds or mass effects. There is cerebral volume loss for age. There are periventricular and deep white matter chronic small vessel ischemic changes. Brainstem appears normal. Diffusion-weighted images show no acute ischemic insults. Chronic left long lacunar infarct is stable compared to prior examinations. A few, scattered, punctate foci of increased T2 signal noted in the periventricular and subcortical white matter tracts. No susceptibility weighted abnormalities are identified the brain parenchyma. Normal intravascular flow voids are present. Skull and face: Calvarial bone marrow is normal in signal. Orbits are normal. Sinuses: Sinuses and mastoids are clear. IMPRESSION: 1. No acute intracranial disease process. 2. Old left thalamic lacunar infarct. 3. Mild periventricular and subcortical white matter chronic microvascular ischemic changes. Dictated by: Kim Jernigan MD, PhD on 09/07/2016 at 14:41 Approved by: Kim Jernigan MD, PhD on 09/07/2016 at 14:46 Cardiac Echo Impression Echocardiogram Report Name: SAMARA LEONG AStudy Date: 09/08/2016 Height: 64 in Hospital Exam Location: [facility] Weight: 188 lb Gender: Female BSA: 1.9 m2 : 1945 Age: 70 yrs BP: 165/91 mmHg Reason For Study: CVA Ordering Physician: HOSPITALIST SVHPerformed By: Howard Solano Referring Physician: Farheen Rod Interpretation Summary The ejection fraction is estimated to be 60-65%. There are no focal wall motion abnormalities. There is mild mitral regurgitation. There is mild aortic regurgitation. The right ventricular systolic pressure is estimated at 22 mmHg assuming a right atrial pressure of 3 mm Hg. Compared to the prior echo report on 10/07/2016, there is no significant change. Brief History Patient is a 70-year-old obese white female with history of multiple CVAs, TIAs , coronary artery disease and hypertension with a history of a 4.7 cm ascending thoracic aortic aneurysm who had a slightly elevated blood pressure this morning and she called Dr. Solaress(sp?) office to his nurse Javy who recommended that she call Dr. Rod office as Dr. Cooper(sp?) Was out of town. The patient called Dr. Rod's office and told the triage nurse that her blood pressure was 179/109 and that she did use the maximum doses of labetalol and lisinopril that she was allowed to use. The triage nurse told her to go to the emergency room. On coming to the emergency room patient dated that she had blurry vision and it felt like an elephant was sitting on her chest and she was cold and clammy and then she developed left-sided weakness of her left upper extremity and left lower extremity. Patient was evaluated by Dr. Devyn Santiago who also noted that she had left upper extremity weakness and even greater left lower extremity weakness. A code stroke was called immediately. Her NIH stroke score was 3 for left upper extremity dysmetria and left lower extremity weakness. She reported subjective blurry vision but was able to count fingers and read words. A CT scan of the head showed no hemorrhage. Dr. Olivas from [facility] a stroke neurologist was called immediately who reviewed the CT scan and thought there may be a developing left occipital infarct and recommended that the patient not receive TPA. She recommended admission for MRI and mild lowering of blood pressure. The patient' s troponins were negative. No acute changes on EKG and patient was admitted to the hospitalist service. Hospital Course Patient is a 70-year-old obese white female with history of multiple CVAs, TIAs , coronary artery disease and hypertension with a history of a 4.7 cm ascending thoracic aortic aneurysm who had a slightly elevated blood pressure this morning and she called Dr. Sheets's(sp?) office to his nurse Javy who recommended that she call Dr. Rod office as Dr. Cooper(sp?) Was out of town. The patient called Dr. Rod's office and told the triage nurse that her blood pressure was 179/109 and that she did use the maximum doses of labetalol and lisinopril that she was allowed to use. The triage nurse told her to go to the emergency room. On coming to the emergency room patient dated that she had blurry vision and it felt like an elephant was sitting on her chest and she was cold and clammy and then she developed left-sided weakness of her left upper extremity and left lower extremity. Patient was evaluated by Dr. Devyn Santiago who also noted that she had left upper extremity weakness and even greater left lower extremity weakness. A code stroke was called immediately. Her NIH stroke score was 3 for left upper extremity dysmetria and left lower extremity weakness. She reported subjective blurry vision but was able to count fingers and read words. A CT scan of the head showed no hemorrhage. Dr. Olivas from [facility] a stroke neurologist was called immediately who reviewed the CT scan and thought there may be a developing left occipital infarct and recommended that the patient not receive TPA. She recommended admission for MRI and mild lowering of blood pressure. The patient' s troponins were negative. No acute changes on EKG and patient was admitted to the hospitalist service. # Transient ischemic attack or reversible ischemic neurological deficit present at the time of admission and resolving. She has a history of multiple strokes and TIAs. Vision appeared to fail Plavix therapy alone - This could be a recrudescence of the patient's previous strokes - Upon accepting the patient I immediately contacted Dr. Freedom Sanchez the patient's neurologist. He was kind enough to return my call and agreed with Dr. Olivas that the patient should not receive TPA. He recommended that patient receive aspirin and continue on her Plavix. He recommended an MRI and he would see the patient in the morning. We will follow his recommendations. - MRI of the brain and neck shows no acute disease - Speech Therapy has been consulted for cognitive evaluation and swallow evaluation. - Physical therapy and occupational therapy were consulted for evaluation and treatment. - Progressive hypertension to a point as patient has a 4.7 cm ascending thoracic aortic aneurysm. - Patient states that she is allergic to "all statins" - Continue aspirin and Plavix. Patient's primary care physician recently discontinued aspirin for fear of developing "pockets" in her stomach. # Chest pain ascribed as a pressure at the time of admission to the emergency room. She has no further chest pain - Patient has a history of Coronary artery disease - Check serial troponins - , Telemetry monitoring - Check echocardiogram pending # Gastroesophageal reflux disease - Continue proton pump inhibitor # Hypertension - Patient received IV labetalol in the emergency room. - Continue oral labetalol here, however will allow permissive hypertension due to presence of a stroke. # Patient has a history of a thoracic ascending aortic aneurysm reportedly 4.7 cm present at the time of admission and chronic. - She is scheduled for repeat CT and ultrasound of her chest next month to reevaluate this aneurysm. - Continue close monitoring # History of thyroid cancer - Status post thyroidectomy - Check TSH in a.m. - Continue replacement therapy Disposition: The patient is being discharged today as recommended by her neurologist Dr. Freedom Sanchez. Exam Vital Signs (Last) Date Time Temp Pulse Resp B/P Pulse Ox O2 Delivery O2 Flow Rate FiO2 09/08/16 12:20 36.8 63 18 155/75 96 Room Air Exam General: Patient is in no apparent distress. HEENT: Head is atraumatic and normocephalic. Eyes: Pupils are equally round and reactive to light and accommodation. Extraocular muscles are intact. Sclera are white, anicteric. Subconjunctival mucosa is pink. Ears and nose are unremarkable. Oropharynx: There is no mucosal lesions, there is no thrush, there is no pharyngitis. There appears be a slight left facial droop. Neck: Is supple, there are no nodes, or masses or tenderness. Chest: Is clear to auscultation and percussion. There are no rales, rhonchi, wheezes or rubs. Heart: Rate, rhythm is regular. There is no murmur, rub or gallop. Abdomen: Good bowel sounds are present. Abdomen is obese, soft, nontender, no organomegaly or masses were appreciated. Extremities: Are symmetrical and well perfused except for recent surgical scar on the volar aspect of the right wrist.. There is trace edema of the lower extremities, there is no cellulitis, no rash. Neurologic: The left-sided weakness has resolved. Patient states that even the minimal amount of foot drop that she has is now resolved today. She states she is completely back to baseline. Psychiatric: Patients mood is calm and shows no sign of agitation. Genital: Deferred Rectal: Deferred Test 09/06/16 16:55 09/06/16 16:58 09/06/16 22:00 09/07/16 02:09 Prothrombin Time 10.4sec (8.1-12.5) Prothromb Time International Ratio 0.97ratio Activated Partial Thromboplast Time 25.9sec (22.8-33.0) Hold Zaidi Top Tube Received (Received) Urine Color Yellow (YELLOW) Urine Appearance Clear (CLEAR,HAZY) Urine pH 5.5 (5.0-8.0) Urine Specific [place] 1.025 (1.003-1.035) Urine Protein Negativemg/dL (NEG,TRACE) Urine Glucose (UA) Negativemg/dL (NEGATIVE) Urine Ketones Negativemg/dL (NEGATIVE) Urine Occult Blood Negative (NEGATIVE) Urine Nitrite Negative (NEGATIVE) Urine Bilirubin Negative (NEGATIVE) Urine Urobilinogen Normalmg/dL (NORMAL) Urine Leukocyte Esterase Negative (NEGATIVE) Urine RBC 0-2/hpf (0-2) Urine WBC 0-5/hpf (0-5) Urine Epithelial Cells Few/hpf (NONE-MOD) Urine Crystals None seen (NONE SEEN) Urine Bacteria None/hpf (NONE-FEW) Urine Hyaline Casts None/lpf (NONE) Urine Granular Casts None seen (NONE SEEN) Urine Waxy Casts None seen (NONE SEEN) Urine Red Blood Cell Casts None seen (NONE SEEN) Urine White Blood Cell Casts None seen (NONE SEEN) Urine Mucus None seen (None Seen) Urine Trichomonas None seen (NONE SEEN) Urine Yeast None (NONE SEEN) Urine Culture Reflexed Not indicated Urine Opiates Screen Negative Urine Methadone Screen Negative Urine Barbiturates Screen Negative Urine Amphetamines Screen Positive Urine Benzodiazepines Screen Positive Urine Cocaine Metabolite Screen Negative Urine Cannabinoids Screen Negative Triglycerides Level 292mg/dL (0-149) Cholesterol Level 207mg/dL (100-199) LDL Cholesterol, Calculated 92.600mg/dL (0-99) VLDL Cholesterol 58.400mg/dL HDL Cholesterol 56mg/dL (>39) Cholesterol/HDL Ratio 3.70 (0.0-4.4) Thyroid Stimulating Hormone (TSH) 7.120uIU/mL (0.450-4.500) Test 09/07/16 08:20 09/08/16 05:50 Troponin T 0.010ug/L (0.0-0.011) White Blood Count 5.1th/mm3 (3.8-10.1) Red Blood Count 4.14mil/mm3 (3.90-5.20) Hemoglobin 13.8g/dL (12.0-15.6) Hematocrit 40.8% (35.0-46.0) Mean Corpuscular Volume 98.6fL (81-100) Mean Corpuscular Hemoglobin 33.3pg (27.0-35.0) Mean Corpuscular Hemoglobin Concent 33.8% (32.0-37.0) Red Cell Distribution Width 11.9% (12.3-15.4) Platelet Count 220bil/L (150-400) Neutrophils (%) (Auto) 38.8% (40-74) Lymphocytes (%) (Auto) 49.4% (14-46) Monocytes (%) (Auto) 6.1% (4-12) Eosinophils (%) (Auto) 5.1% (0-5) Basophils (%) (Auto) 0.4% (0-3) Sodium Level 142mEq/L (134-144) Potassium Level 4.1mEq/L (3.5-5.2) Chloride Level 104mEq/L (97-108) Carbon Dioxide Level 26mmol/L (18-29) Blood Urea Nitrogen 13mg/dL (8-27) Creatinine 0.71mg/dL (0.57-1.00) Estimat Glomerular Filtration Rate 116mL/min (>59) Glucose Level 100mg/dL (60-99) Calcium Level 9.9mg/dL (8.5-10.1) Magnesium Level 1.8mg/dL (1.6-2.6) Total Bilirubin 0.4mg/dL (0.0-1.2) Aspartate Amino Transf (AST/SGOT) 21U/L (0-50) Alanine Aminotransferase (ALT/SGPT) 9U/L (0-32) Alkaline Phosphatase 66U/L (25-165) Total Protein 6.4g/dL (6.4-8.4) Albumin 4.2g/dL (3.4-5.0) Microbiology Results Name: SAMARA LEONG Age/Sex: 70/F Attend Dr: Jorge Caban Acct: [id number] Unit: [id number] Status: ADM IN Location: [facility] 3020-1 Re09/06/16 Disch: Specimen: [id number] Collected: 09/07/16 Status: COMP Req#: [id number] Received: 09/07/16 Source: APRYL Sp Desc : Subm Dr: Jorge Caban MD Ordered: CHRISTY MRSA PCR Comments: Collected in inappropriate collection swab. New MRSA PCR requires a red top dual sponge swab. Please recollect. WES called to Rosalia Wu to recollect 09/07 Collected by Nurse/Unit? Y/N Y Procedure Result Verified Site Microbiology CHRISTY MRSA PCR Final 09/07/16-1106 MRSA BY PCR NEGATIVE REFERENCE INTERVAL NEGATIVE Discharge Medications Discharge Medications ([super b-50 complex]) 1 TABLET PO HS (Reported) ([Aspirin-Expunged Drug, Do Not Renew!]) 325 MG TABLET 81 MG PO DAILY Prescribed by: CARLOS CABAN MD Cholecalciferol (Vitamin D3) (Vitamin D3) 5,000 Unit Tablet 5,000 UNIT PO HS ( Reported) Clopidogrel Bisulfate (Plavix) 75 Mg Tablet 75 MG PO HS (Reported) Fish Oil/Dha/Epa (Fish Oil 1,200 mg Fish Oil) 1 Each Capsule 6 EACH PO HS ( Reported) Labetalol (Labetalol) 100 Mg Tablet 100 MG PO QID Prescribed by: CARLOS CABAN MD Levothyroxine (Levothyroxine) 112 Mcg Tablet 112 MCG PO QAM (Reported) Lisinopril (Lisinopril) 5 Mg Tablet 10 MG PO BID (Reported) Multivitamin (Multi Vitamin Daily) 1 Each Tablet 1 EACH PO HS (Reported) Pantoprazole DR (Protonix) 40 Mg Tablet.dr 40 MG PO BID (Reported) Ubidecarenone/Vit E Acetate (Co Q-10 100 mg Softgel) 1 Each Capsule 2 EACH PO HS (Reported) As needed Albuterol Sulfate (Ventolin HFA Inhaler) 200 Puff/18 Gm Inhaler 2 PUFF INH Q4 PRN PRN For Wheezing (Reported) Diazepam (Valium) 10 Mg Tablet 10 MG PO Q4-6H PRN PRN For Anxiety Prescribed by: JUANITO OLSON DO Docusate Sodium (Docusate Sodium) 250 Mg Capsule 250 MG PO BID PRN PRN For Constipation (Reported) Hydrocodone-Acetaminophen 10-325 mg (Hydrocodone-Acetaminophen 10-325 mg) 1 Each Tablet 1-2 TABLET PO Q4H PRN PRN For Pain Prescribed by: JUANITO OLSON DO Polyethylene Glycol 3350 (Miralax) 17 Gm Powd.pack 17 GM PO HS PRN PRN For Constipation (Reported) Psyllium Husk (Metamucil) 3.4 Gram/5.4 Gram Powder 1 DOSE PO HS PRN PRN For Constipation (Reported) Sennosides (Senna) 8.6 Mg Tablet 8.6 MG PO DAILY PRN PRN PRN For Constipation ( Reported) Spironolactone (Spironolactone) 25 Mg Tablet 1-2 TABLET PO DAILY PRN PRN edema ( Reported) Followup Plan Disposition: She is being discharged home. Discharge Diet: Heart Healthy Discharge Activity: No restrictions (Patient may resume usual activities gradually as tolerated) Follow-up Provider: Rubio Rod MD Follow-up with PCP in: 1 week Provider: Freedom Sanchez MD Follow-up in: 1 week Mid-level Provider: CHELSI ROMERO MD Follow-up with Mid-level in: 1 week Time spent Time spent on discharging this patient was greater than 35 minutes, over half of which was involved in counseling and coordination of care. Jorge Caban MD Sep 09, 2016 01:12
== END 2016-09-08 15:09 | disposition home or self-care (01) | DRG 69 ==
LOC: SED 16:13 → MPC 18:26
PROVIDERS: ADMIT Internal Medicine Infectious Disease; ATTEND Internal Medicine Infectious Disease
DX: G45.9 Transient cerebral ischemic attack, unspecified (principal); R07.9 Chest pain, unspecified; I25.10 Atherosclerotic heart disease of native coronary artery without angina pectoris; K21.9 Gastro-esophageal reflux disease without esophagitis; I10 Essential (primary) hypertension; R29.703 NIHSS score 3